=== PATIENT | male | born 1935 | race Caucasian/White ===

== ENCOUNTER 2016-10-05 21:12 | Inpatient (IN) | payer OTHER ==
[~2016-10-05] VITALS: Ht 172.7 cm; Wt 104.3 kg
--- NOTE | ~2016-10-05 | O ---
[facility] [place] [address] OPERATIVE REPORT Name: SEBASTIEN GREEN Room #: 205-P [facility] IN M.R.#: [id number] Admission: 10/06/16 Attend Phys: Dillon Sparsk Discharge: Date of : 37 Report #: [id number] THIS REPORT FOR: //name// CC: Stefan Kahn Tesfaye DATE OF SERVICE: 10/11/2016 PREOPERATIVE DIAGNOSIS: Small-bowel obstruction with possible perforation and abscess formation. 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 OPERATIVE PROCEDURE: 1. Exploratory laparotomy with small bowel resection (82 cm) of jejunum with primary anastomosis. 2. Thompson gastrostomy tube insertion. SURGEON: Sami Britt MD HIGH PRESSURE BOILER OPERATOR: Rogelio Iyer DO SECOND ASSISTANTS: 1. Alex Bowers MS3. 2. Mann Lovelace MS3. INDICATIONS: A 81-year-old male who presented with abdominal pain, obstipation and symptoms suggestive of partial small-bowel obstruction. The patient has had some resolution of the small-bowel obstruction, placed on IV antibiotics and is able to tolerate a bowel prep, so that he could have a colonoscopy, which delineated only some few small polyps and diverticulosis. The patient now requires definitive exploratory laparotomy. OPERATIVE PROCEDURE: The patient and his and family had thorough discussion of the procedure, benefits and risks. They gave informed consent to proceed. The patient was on a therapeutic antibiotic regimen. He was brought to the operating room suite and had satisfactory induction of general endotracheal anesthesia. The patient had an indwelling Cohen catheter present previously. After sterile prep and paint with DuraPrep was performed, draping was completed. An appropriate timeout was then performed. A long upper midline incision was performed from the xiphoid to the umbilicus. Upon entering the peritoneal cavity, there were some dense thin adhesions between the intermesenteric loops of the upper abdomen. Approximately 20-30 cm distal to the ligament of Treitz was an area of jejunal diverticulosis, extending for [facility] [address] [place] [address] OPERATIVE REPORT Name: GREENSEBASTIEN Room #: 205-P [facility] IN M.R.#: [id number] Admission: 10/06/16 Attend Phys: Dillon Sparks Discharge: Date of : 37 Report #: [id number] approximately 82 cm. There was exudate present on the jejunum and the intermesenteric loops at this point. Cultures of the lower abdomen and peritoneal fluid were obtained for aerobes and anaerobes. Cultures of the upper abdomen were also obtained. The dissection was made in the mesentery and the JESUS 60 stapling device was utilized to transect the proximal portion of the jejunal diverticulitis. The distal resection was then completed in the same manner with the JESUS blue load. The distal margin of the transect specimen was marked with a suture. The mesentery was then transected with the EnSeal Ethicon energy device. After the bowel resection was completed, the proximal and distal ends of the jejunum were brought together and sutured with interrupted 3-0 PDS suture. An enterotomy was then performed in the proximal and distal ends. The JESUS stapling device was inserted and an anastomosis was performed. The enterotomy site was then grasped with Allis clamps. The TA 60 stapling device was utilized to close the enterotomy of the proximal and the distal end. The anastomosis was complete. A 2 finger opening was present at the anastomosis site. Two 3-0 PDS sutures were placed at the notch to further approximate the bowel yeung. The transected end and the enterotomy sites were then oversewn with a running 3-0 PDS sutures. The rent in the mesentery was also approximated with running 2-0 PDS. After this was completed, copious irrigation with saline was performed. Evacuation of 3 liters of saline was accomplished. Further inspection of the remaining small bowel to the ileocecal valve was unremarkable. The upper abdomen is unremarkable. An NG tube could not be satisfactorily placed during the procedure into the stomach. A thompson gastrostomy tube was then inserted in the mid portion of the body of the stomach. Two pursestring sutures of 2-0 PDS were placed. A gastrotomy was performed with the cautery. The thompson tube was then brought to the abdominal wall in the left upper quadrant and the distal end was fit into the duodenum through the pylorus. The balloon was inflated with 20 mL of water. The pursestring sutures were ligated and the needles were utilized to approximate the anterior portion of the stomach to the anterior abdominal wall. After this was completed, forward flushing of water was performed through the gastrostomy tube lumen and also the enteral feeding tube lumen had water flushed through it. The liver was unremarkable. No other intra-abdominal pathology was noted. Estimated blood loss was approximately 250 mL. Hemostasis was complete. The fascia was then approximated with a running loop #1 PDS suture from the inferior aspect of the incision. A second #1 PDS suture loop was run from the superior aspect of the incision. Each were tied individually in the mid portion of the wound. The tails were then tied and completed together. All sponge and needle counts were correct prior to closure of the abdominal fascia. Irrigation of subcutaneous tissues was performed. A two 19-Albanian GRETA drains had been placed prior to fascial closure and brought out and placed in the colic gutters and brought out in the lower abdomen, one on the right, one on the left. Skin margins were then approximated with reema. [facility] [address] [place] [address] OPERATIVE REPORT Name: SEBASTIEN GREEN Room #: 205-P [facility] IN ..#: [id number] Admission: 10/06/16 Attend Phys: Dillon Sparks Discharge: Date of : 37 Report #: [id number] patient tolerated the procedure well and returned directly to the recovery room in stable and satisfactory condition. <ELECTRONICALLY SIGNED> By: Sami Britt MD, FACS 10/18/16 0907 [id number] 1824 Sami Britt MD, FACS /nt
--- NOTE | ~2016-10-05 | EKG ---
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 : [id number] Requested By: Aly Cutler Order Number: [id number] MD: Brian Davenport Measurements Intervals [place] Rate: 90 P: -52 AK: 164 QRS: -66 QRSD: 136 T: 98 QT: 360 QTc: 441 Interpretive Statements Sinus or ectopic atrial rhythm Nonspecific IVCD with LAD Inferior infarct, old Lateral leads are also involved Baseline wander in lead(s) V2 Compared to ECG 05/08/2015 18:05:47 Ectopic atrial rhythm now present Sinus tachycardia no longer present Left-axis deviation no longer present Myocardial infarct finding still present Electronically Signed On 10-09-2016 21:56:21 CDT by Brian Davenport [email or web address] <ELECTRONICALLY SIGNED> By: Brian Davenport MD 10/09/166 26 26 Brian Davenport MD /EPI
--- NOTE | ~2016-10-05 | HC ---
[facility] [place] [address] CONSULTATION Name: SEBASTIEN GREEN Room #: 419-P [facility] IN .R.#: [id number] Admission: 10/06/16 Attend Phys: Ulisses Solis DO Discharge: Date of : 37 Report #: [id number] THIS REPORT FOR: //name// CC: Stefan Sales MD [facility] Sami Velazcoiman DATE OF SERVICE: 10/06/2016 PATIENT OF: Dr. Stefan Sales, Dr. Flex Davis, and Dr. Ulisses Solis. CHIEF COMPLAINT: This is a very pleasant 81-year-old male whom we are asked to evaluate for possible colonoscopy prior to a surgical intervention for a small-bowel abscess and partial bowel obstruction. HISTORY OF PRESENT ILLNESS: The patient is a very pleasant 81-year-old white male who presented with a fever of 101.6 and an elevated white blood cell count with a left shift. He was diagnosed with a small-bowel obstruction, it looks like he may have possibly an abscess involving the small-bowel obstruction, it appears to be entirely involving the small-bowel on CT scan. Today, the patient had 2 stools indicating this is probably actually a partial small-bowel obstruction. He does complain of left lower quadrant abdominal pain. He did have nausea this week since the symptoms began and he experienced onset of new constipation, which is probably simply the small-bowel obstruction preventing any bowel motility from the stool. He has not been able to eat much all week either. PAST MEDICAL HISTORY: Significant for nonischemic cardiomyopathy, congestive heart failure, the patient has a defibrillator. He has I believe a thoracic aortic aneurysm that is inoperable since 2012. He also has a history of diabetes mellitus, obesity, hypertension, gout, hyperlipidemia, chronic kidney disease, urolithiasis, hypothyroidism, and enlarged prostate. He has lumbar compression fracture and he has a history of pulmonary embolism for which he has been taking Coumadin for several years. PAST SURGICAL HISTORY: Significant for coronary artery bypass grafting, a left ankle repair, and he had placement of a defibrillator. ALLERGIES: To DOGS AND CATS. MEDICATION ALLERGIES: Include CEPHALEXIN. [address] [address] CONSULTATION Name: SEBASTIEN GREEN Room #: 419-P [facility] IN ..#: [id number] Admission: 10/06/16 Attend Phys: Ulisses Solis DO Discharge: Date of : 37 Report #: [id number] MEDICATIONS PRIOR TO ADMISSION: Included aspirin, Lipitor, Coreg, colchicine, Cardura, potassium chloride, Glucotrol, Bl[place]coe, Imdur, spironolactone, torsemide, valsartan, and warfarin. SOCIAL HISTORY: He does not smoke. He does not drink alcohol. He does not use street drugs. FAMILY HISTORY: Significant for colon cancer in his mother at age 72. There is no history of Crohn's disease, ulcerative colitis, or celiac sprue in his family. REVIEW OF SYSTEMS: He denies any dysphagia, odynophagia, gastroesophageal reflux, hiatal hernia, or peptic ulcer disease. He has had nausea this week. No vomiting. His appetite has been poor. He thought there may be some relationship to the thyroid supplements that he started taking, but I think it was a coincidence actually. He denies any hematemesis, hematochezia, or melena. He has never had a colonoscopy. He appears to have a fatty liver on CT scan. He denies any history of jaundice, hepatitis, cholelithiasis, cholecystitis, or pancreatitis. PHYSICAL EXAMINATION: GENERAL: Reveals a well-developed, somewhat obese 81-year-old white male who is in no apparent distress at the time of the examination. He is awake, alert, oriented x4, cooperative, and very pleasant to converse with. He is sitting up in chair at the side of the bed when I interviewed him. VITAL SIGNS: Blood pressure 113/69, temperature 98.1, although it was 101.6 at about 3:00 this morning, his pulse is 94, and respirations are 18. HEENT: He is normocephalic, atraumatic and anicteric. HEART: Rate and rhythm are regular with a normal S1 and S2. LUNGS: Clear bilaterally posteriorly. ABDOMEN: Soft. Bowel sounds are present in all 4 quadrants. The abdomen is somewhat firm in the mid epigastrium and down into the periumbilical area and left lower quadrant. He is tender in the left lower quadrant. There is no rebound or guarding. EXTREMITIES: Warm and dry. NEUROLOGIC: He appears grossly intact without lateralizing signs, but I did not test him extensively from the neurological standpoint. SIGNIFICANT LABORATORY DATA: BMP is normal except as follows: Potassium is 5.7, BUN 40, creatinine 2.3, glucose is 173. Calcium is 10 with an albumin of 3.3, I think this is indicated he has some hypercalcemia. Troponin was normal. INR is 2.7. White blood cell count 14,000, hemoglobin 15.2, hematocrit 46.5, indices are normal, RDW is slightly elevated at 14.8, platelets are 212,000, he has 80 neutrophils, 10 bands, 5 lymphocytes, 1 monocyte, 1 promyelocyte, and 3 atypical . Urinalysis is pending. Stool is occult negative from the ER. [facility] [address] [place] [address] CONSULTATION Name: SEBASTIEN GREEN Room #: 419-P ADM IN M.R.#: [id number] Admission: 10/06/16 Attend Phys: Ulisses Solis DO Discharge: Date of : 37 Report #: [id number] RADIOLOGY PROCEDURES: CT scan of the abdomen and pelvis shows fatty infiltration of the liver. Gallbladder and spleen are normal. The kidneys have some cyst that are fairly large 5 and 7 cm, they look like simple cyst on the CT scan. There is a stone in the left ureter that is 7 x 3 mm and it is not causing any significant hydronephrosis. There is wall thickening of the bladder and trabeculation. Adrenal gland demonstrates some thickening in the left side. The pancreas is normal. Abdominal aorta is normal in size. There is some abdominal aortic calcification. There are dilated fluid filled small-bowel loops up to 3.5 cm in size. There is a thick wall mass or inflammatory region by the small-bowel loops and a thick wall irregular collection situated next to the small-bowel loops, which may be a large inflammatory mass. Tumor is not excluded. This may be an abscess. This appears to resides in the mid small-bowel causing a small-bowel obstruction. Cecum is high and the appendix is not well seen. There is moderate stool throughout the colon There is moderate compression of the L2 vertebrae likely chronic. There is a prostate enlargement. IMPRESSION: 1. Small-bowel obstruction versus partial small-bowel obstruction, possibly related to a small intestinal abscess. Symptoms were acute in onset on Monday or Monday. The patient has had fevers, chills, an elevated white blood cell count with a left shift. He states he could not pass flatus or stool until today since Monday. He was nauseated. He complained of new onset of constipation this week. 2. Hypothyroidism. 3. Nonischemic cardiomyopathy per old chart, history of congestive heart failure, and the patient has an implantable defibrillator. 4. Thoracic aortic aneurysm, reportedly inoperable. 5. Hyperkalemia and hypercalcemia with low albumin. 6. History of pulmonary embolism. The patient is on Coumadin for this. 7. Fatty liver. 8. Obesity. 9. Diabetes mellitus. 10. Hypertension. 11. Gout. 12. Hyperlipidemia. 13. Chronic kidney disease. 14. Urolithiasis. 15. Benign prostatic hypertrophy. 16. Lumbar compression fracture. 17. Family history of colon cancer in his mother at age 72. 18. The patient has never had a colonoscopy. RECOMMENDATIONS: My recommendations are as follows: I agree with the colonoscopy prior to surgery. We will proceed with a slow colon prep [address] [address] CONSULTATION Name: GREENSEBASTIEN Room #: 419-P [facility] IN M.R.#: [id number] Admission: 10/06/16 Attend Phys: Ulisses Solis DO Discharge: Date of : 37 Report #: [id number] consisting of MiraLax. We will hold his Coumadin to allow his protime and INR to drift down. We will continue on his current antibiotic regimen and we will encourage him to ambulate to prevent DVT formation. He will need a cardiology preoperative evaluation for clearance. I have spoken with the patient and his and the plan for prepping for this colonoscopy, which will be this coming Monday on October 10. He is agreeable to try this to see if he can tolerate slow MiraLax prep. Thank you very much once again for allowing me to participate in his care, Dr. Solis. <ELECTRONICALLY SIGNED> By: Phyllis Babb DO 10/06/162131 01 37 Phyllis Babb DO /nt
--- NOTE | ~2016-10-05 | P ---
[facility] [place] [address] PROCEDURE REPORT Name: SEBASTIEN GREEN Room #: 450-P [facility] IN M.R.#: [id number] Admission: 10/06/16 Attend Phys: Dillon Sparks Discharge: Date of : 37 Report #: [id number] THIS REPORT FOR: //name// CC: Stefan Carlin PROCEDURE: Colonoscopy. BRIEF HISTORY: The patient is a 81-year-old male with partial small-bowel obstruction secondary to walled-off small-bowel perforation with abscess. He has never had a colonoscopy, and plans are for a surgical intervention tomorrow. Colonoscopy was requested prior to the surgery. PREOPERATIVE DIAGNOSIS: Small-bowel obstruction. POSTOPERATIVE DIAGNOSES: 1. Multiple colonic polyps. 2. Diverticulosis coli, primarily descending colon. MEDICATIONS: Deep sedation with propofol and ketamine per anesthesia. SPECIMENS: 1. Proximal transverse colon polyps x 3. 2. Polyp, splenic flexure. 3. Polyp, proximal descending colon. 4. Polyp, mid sigmoid colon. ESTIMATED BLOOD LOSS: 3 mL. PROCEDURE: Colonoscopy to cecum and terminal ileum with snare polypectomy and biopsy. FINDINGS: Prior to propofol sedation, procedure of colonoscopy discussed with the patient as well as potential risks and its complications. He indicates he understands and desires to proceed. DESCRIPTION OF PROCEDURE: With the patient in left lateral decubitus position, digital examination was completed which revealed no abnormalities. Subsequently, the Levels [employer] video colonoscope was introduced through the rectum, advanced under direct vision to the cecum, done with minimal difficulty. The cecum was identified by the ileocecal valve and the appendiceal orifice. I was able to advance the scope across the ileocecal valve and examined the last 5 cm or so of the distal terminal ileum, which was unremarkable. An obstruction was [facility] [address] [place] [address] PROCEDURE REPORT Name: SEBASTIEN GREEN Room #: 450-P [facility] IN [facility].#: [id number] Admission: 10/06/16 Attend Phys: Dillon Sparks Discharge: Date of : 37 Report #: [id number] not found at this level. At that point, the scope was slowly withdrawn, and careful circumferential views obtained. The prep was overall good. There was a small amount of residual material, but overall reasonably good views were obtained throughout the colon. As we withdrew the scope, the mucosa was inspected and noted to be within normal limits; normal vascular pattern, normal light reflex. As we withdrew the scope to the level of the proximal transverse colon, 3 diminutive polyps were seen and removed by biopsy. We withdrew the scope further, and another diminutive polyp was found and removed by biopsy at the level of the splenic flexure. The scope was further withdrawn to the descending colon. He was noted to have moderate diverticular disease without endoscopic evidence of diverticulitis. In the proximal descending colon, he was found to have an 8 mm sessile polyp that was removed by cold snare polypectomy. There was good hemostasis after removal of the polyp. The scope was further withdrawn, and interestingly, by the time we reached sigmoid colon, the diverticular disease had pretty much dissipated. However, in the mid sigmoid colon, another polyp was seen and removed by biopsy. The scope was withdrawn to the rectum. Upon retroflexion, no abnormalities were seen. Scope was withdrawn. The patient tolerated the procedure well. DISPOSITION: The patient with recent findings of partial small-bowel obstruction with surgery planned tomorrow. Multiple polyps were identified and removed as described above. No obstructing lesions were seen. We will follow up on the path report, and due to the multiple polyps removed today, we would suggest return in 3 years for a surveillance high-risk screening colonoscopy. <ELECTRONICALLY SIGNED> By: Gustabo Gonzalez MD 10/11/16 1547 1402 1828 Gustabo Gonzalez MD /nt
--- NOTE | ~2016-10-05 | S ---
[facility] [place] [address] SURGICAL PATH RPT PROCEDURE Name: SEBASTIEN GREEN Room #: 247-P ADM IN M.R.#: [id number] Admission: 10/06/16 Date of : 37 Discharge: Report #: [id number] Path Case #: [id number] PATHOLOGY REPORT COLLECTION DATE: 10/11/2016 RECEIVED DATE: 10/12/2016 SUBMITTING PHYS: Dr. Sami Britt OTHER PHYS: Dr. Dillon Sales SPECIMEN(S) RECEIVED: A.Jejunum * * * * * * * * * * * * FINAL DIAGNOSIS: Small bowel, jejunum, resection: - Marked acute inflammation associated with perforation. - Diverticulosis. - Negative for dysplasia or malignancy. - Margins of resection viable and unremarkable. (IUV:mgr; 10/13/2016) PATHOLOGIST: Jannet De Paz M.D. REPORT ELECTRONICALLY SIGNED BY: Jannet De Paz M.D. DATE/TIME: 10/13/2016 16:07 * * * * * * * * * * * * GROSS PATHOLOGY: The specimen is received in formalin, labeled "Sebastien Green jejunum, long suture is distal" is a dilated, congested, purple-red segment of small bowel measuring 68.5 cm in length the maximum diameter of 4.2 cm. Each margin is closed with a line of reema. The serosa is diffusely congested with numerous adhesions and areas of exudate in the mesenteric adipose tissue. The lumen contains green, soft, mucoid fecal material. The mucosa has a starks-green, velvety, fecal stained appearance and shows its normal circular folds. The distal margin is marked with a purple suture. Sectioning reveals multiple diverticula ranging from 0.4-3.0 cm in depth. The diverticula contain starks-brown fecal material. One of the larger diverticula, located at the center of the specimen, has a romero-white, thickened outer surface and a pink-red, ragged mucosal surface. A distinct transmural defect is not grossly noted. Diverticuli are located within 6.1 cm of the proximal margin and 10.1 cm of the distal margin. No additional abnormalities are identified. Remote Broadcast Technician sections are submitted as follows: [facility] [place] [address] SURGICAL PATH RPT PROCEDURE Name: SEBASTIEN GREEN Room #: 247-P ADM IN M.R.#: [id number] Admission: 10/06/16 Date of : 37 Discharge: Report #: [id number] Path Case #: [id number] A1 - proximal margin A2 - distal margin A3 - thickened, central diverticulum A4-A5 - additional sections of diverticuli A6 - truck sales representative sections of uninvolved bowel. (ZHANNA; 10/12/2016) CLINICAL HISTORY: Small bowel obstruction, perforation, abscess INITIAL CPT CODE(S): A; 01552 Professional services performed by [facility] at [facility] [address] [place] [address] Technical services performed by [facility] at [address] [place] [address], [address], [place] [address]. [facility] [address] [place] [address] PHONE: [phone] DIRECTOR: Sage Pool M.D. * * * END OF REPORT * * *
--- NOTE | ~2016-10-05 | HC ---
[facility] [place] [address] CONSULTATION Name: SEBASTIEN GREEN Room #: 205-P [facility] IN .R.#: [id number] Admission: 10/06/16 Attend Phys: Dillon Sparks Discharge: Date of : 39 Report #: [id number] THIS REPORT FOR: //name// CC: Stefan Kahn Tesfaye DATE OF SERVICE: 10/19/2016 HISTORY OF PRESENT ILLNESS: The patient is a 81-year-old white male admitted with constipation, small-bowel obstruction, in acute renal insufficiency. He was noted to have jejunal diverticulitis with probable perforation. He underwent exploratory laparotomy with small bowel resection of jejunum with primary anastomosis and a gastrostomy tube inserted. He was placed on TPN. G-tube was clamped on 10/15/2016. He has been treated with IV Unasyn as well as Diflucan. He had acute renal insufficiency superimposed on chronic kidney disease. He was noted to have ureterolithiasis, nonobstructive, with further management per Urology. He does have diabetes mellitus with hemoglobin A1c of 7.7. He has medical complexity with generalized debilitation and we are seeing him in rehabilitation medicine consultation. PAST MEDICAL HISTORY: Includes coronary artery bypass grafting x 3, AICD placement, ankle fracture, abdominal aortic aneurysm, pacemaker with defibrillator, hypertension, high cholesterol, diabetes mellitus, prior history of a PE with DVT, peripheral vascular disease, chronic lower extremity edema. MEDICATIONS: Please see the full medication listing. SOCIAL HISTORY: Lives in a house with his , eight steps. Premorbidly was ambulatory, did not use gait aids for the most part, was able to drive in the community. He did have a walker that would be utilized for long distances. REVIEW OF SYSTEMS: Did not offer any current complaints of chest pain, shortness of breath. He has some mild abdominal pain that is improving. No current complaints of focal extremity pain. PHYSICAL EXAMINATION: GENERAL: A 81-year-old overweight white male in no obvious distress. VITAL SIGNS: Last recorded temperature is 98.8, pulse 59, respirations 20, blood pressure 127/71. NEUROLOGIC: The patient is alert and oriented, good historian. Facies are symmetric. He has functional range of motion of both upper extremities. No obvious focal weakness. ABDOMEN: Midline abdominal incision, dressings in place. EXTREMITIES: He has left lower quadrant abdominal drain. He has the abdominal [facility] [address] [place] [address] CONSULTATION Name: SEBASTIEN GREEN Room #: 205-P [facility] IN .R.#: [id number] Admission: 10/06/16 Attend Phys: Dillon Sparks Discharge: Date of : 37 Report #: [id number] Lower extremities, no focal calf swelling. Strength is probably a grade 3+ to 4-/5. DTRs are decreased. He is currently continuing to need max assist for basic transfers, but is doing a better job of getting his weight forward per discussion with physical therapy. He ambulated today 10 feet with a front-wheeled walker with mod assist. ASSESSMENT: A 81-year-old white male with the following problem list: 1. Medical complexity with generalized debilitation. 2. Small-bowel obstruction with perforation/peritonitis status post jejunal resection. 3. Acute renal insufficiency superimposed on chronic kidney disease. 4. Ureterolithiasis, nonobstructive, per Urology. 5. History of deep venous thrombosis with pulmonary embolus. 6. Hypertension. 7. Exogenous obesity. 8. History of AICD placement. 9. Coronary artery disease with prior coronary artery bypass grafting with cardiac stents. PLAN: The patient is progressed assessing with his therapies. Insurance will be checked regarding acute in-hospital inpatient rehabilitation stay. He has multiple consultants including Surgery, Cardiology, Infectious Disease, Pulmonary Medicine, Urology and these physicians will all be able to continue to follow while on the rehab cook during his recovery. We will be glad to follow along with you regarding his rehab therapy needs. By: [id number] Saul Chris MD /
--- NOTE | ~2016-10-05 | HC ---
[facility] [place] [address] CONSULTATION Name: SEBASTIEN GREEN Room #: 450-P [facility] IN ..#: [id number] Admission: 10/06/16 Attend Phys: Dillon Sparks Discharge: Date of : 37 Report #: [id number] THIS REPORT FOR: //name// CC: Stefan Carlin DATE OF SERVICE: 10/06/2016 HISTORY OF PRESENT ILLNESS: I have been asked to evaluate this 81-year-old male who has presented to the emergency department complaining of constipation and lower abdominal pain. The patient relates that his last bowel movement was approximately 3 days prior to admission. He reported that normally he has a stool on a daily basis. His abdominal pain has progressively worsened in the last 24 hours and he came to the emergency room for evaluation. He is taking a thyroid medication and thought that might be the source of his pain. His abdominal pain is reported to be cramping, worse with sitting. He denies any previous episodes similar to this in the past. He denies ever having colonoscopy up to the current time. He has noted no melena or hematochezia. A CT scan was found to demonstrate a possible intra-abdominal abscess and small bowel perforation. PAST MEDICAL HISTORY: Of significance, chronic renal disease, gout, tendonitis and ureterolithiasis, as well as coronary artery disease, ankle fracture, pacemaker defibrillator, hypertension, hypercholesterolemia, diabetes mellitus, history of PE and DVT, peripheral vascular disease, chronic lower extremity edema. PAST SURGICAL HISTORY: Coronary artery bypass grafting, repair of an ankle fracture. MEDICATIONS: Coreg 25 mg, Lipitor 40 mg, Diovan 320 mg, glipizide 10 mg b.i.d., Cardura, K-Dur, Coumadin 5 mg daily, aspirin 1 tab daily, spironolactone and Imdur. ALLERGIES: He is allergic to CAT DANDER, CEPHALOSPORINS, CEPHALEXIN AND DOGS. SOCIAL HISTORY: Denies ever smoking cigarettes. Does not use alcohol. Lives with his at home. FAMILY HISTORY: Consistent with cancer. REVIEW OF SYSTEMS: Generally, the patient has been progressively decreasing in excise tolerance, has some progressive abdominal pain and discomfort, has not lost any weight, was trying to loose. Gastrointestinal symptoms have worsened [facility] [address] [place] [address] CONSULTATION Name: SEBASTIEN GREEN Room #: 450-P [facility] IN .R.#: [id number] Admission: 10/06/16 Attend Phys: Dillon Sparks Discharge: Date of : 37 Report #: [id number] in the last 3-5 days. PHYSICAL EXAMINATION: GENERAL: Reveals a patient who is alert, comfortable. He has obesity, sitting on a chair. NECK: Supple, no adenopathy. LUNGS: Clear at the bases bilaterally. CARDIOVASCULAR: Regular rate and rhythm. ABDOMEN: Obese, mild tenderness in the lower abdomen. Bowel sounds are present. NEUROLOGIC: He is oriented times 3. He has bilateral motor symmetry. EXTREMITIES: Some pitting edema of the lower extremities. DIAGNOSTIC IMPRESSION: Partial small-bowel obstruction secondary to possible small bowel perforation with isolated abscess. PLAN: I would recommend IV fluids, IV antibiotics, evaluation by GI to consider slowly prepping the patient and possible flexible sigmoidoscopy or colonoscopy prior to exploratory laparotomy with bowel resection and resection of the abscess and perforation. The patient may require TPN for nutrition during the definitive evaluation process. Thank you for allowing us to participate in his care. <ELECTRONICALLY SIGNED> By: Sami Britt MD, FACS 10/11/16 [id number] Sami Britt MD, FACS /nt
--- NOTE | ~2016-10-05 | S ---
[facility] [place] [address] SURGICAL PATH RPT PROCEDURE Name: SEBASTIEN GREEN Room #: 247-P ADM IN M.R.#: [id number] Admission: 10/06/16 Date of : 39 Discharge: Report #: [id number] Path Case #: [id number] PATHOLOGY REPORT COLLECTION DATE: 10/10/2016 RECEIVED DATE: 10/10/2016 SUBMITTING PHYS: Dr. Gustabo Gonzalez OTHER PHYS: Dr. Dillon Sales SPECIMEN(S) RECEIVED: A.Bx at proximal hepatic flexure B.Bx of polyp at spleenic C.Polypectomy at proximal descending colon D.Polypectomy at mid sigmoid * * * * * * * * * * * * FINAL DIAGNOSIS: A. Colonic mucosa, "biopsy at proximal hepatic flexure": - Fragments of tubular adenoma. - There is no evidence of high-grade dysplasia or malignancy. B. Colonic mucosa, "biopsy of polyp of splenic flexure": - Polypoid colonic mucosa consistent with early hyperplastic polyp. - There is no evidence of adenomatous change, high-grade dysplasia or malignancy. C. Colonic mucosa, "polypectomy at proximal descending colon": - Fragments of tubular adenoma. - There is no evidence of high-grade dysplasia or malignancy. D. Colonic mucosa, "polypectomy at mid sigmoid": - Tubular adenoma. - There is no evidence of high-grade dysplasia or malignancy. (SHA:nicky; 10/12/2016) PATHOLOGIST: Edgar Chapman M.D. REPORT ELECTRONICALLY SIGNED BY: Edgar Chapman M.D. DATE/TIME: 10/12/2016 11:27 * * * * * * * * * * * * GROSS PATHOLOGY: A. Received in formalin labeled "Sebastien Green, BX at proximal hepatic flexure," are 3 segments of starks soft tissue measuring 1.2 x 0.2 x 0.2 cm in aggregate dimensions and ranging from 0.3 to 0.5 cm in maximum dimension. The specimen is submitted entirely in cassette A1. [address] [address] SURGICAL PATH RPT PROCEDURE Name: SEBASTIEN GREEN Room #: 247-P [facility] IN M.R.#: [id number] Admission: 10/06/16 Date of : 39 Discharge: Report #: [id number] Path Case #: [id number] B. Received in formalin labeled "Sebastien Green, BX of polyp at splenic," is a segment of starks soft tissue measuring 0.9 x 0.2 x 0.2 cm in maximum dimension. The specimen is submitted entirely in cassette B1. C. Received in formalin labeled "Sebastien Green, polyp at proximal descending colon," is a 1.4 x 0.4 x 0.3 cm polypoid piece of starks soft tissue. The margin is inked and the tissue is sectioned perpendicular to the margin and submitted in its entirety in cassette C1. D. Received in formalin labeled "Sebastien Green, polyp at mid sigmoid," is a 0.7 x 0.4 x 0.3 cm polypoid piece of starks soft tissue with a stalk measuring 0.4 cm in length and 0.3 cm in diameter. The margin of the stalk is inked and the tissue is sectioned perpendicular to the margin and submitted in its entirety in cassette D1. (NATHANAEL; 10/11/2016) CLINICAL HISTORY: Diverticulosis, SBO INITIAL CPT CODE(S): A; 31526 B; 99965 C; 00184 D; 26318 Professional services performed by [employer] at [facility] [address], [place] [address] Technical services performed by [employer] at [address] [place] [address], [address], [place] [address]. [facility] [address] [place] [address] PHONE: [phone] DIRECTOR: Sage Pool M.D. * * * END OF REPORT * * *
[~2016-10-05 21:12] MED LIST: ACETAMINOPHEN325 M1 PO; ACID CONTROL20 MG PO; ADALAT CC90 MG PO; ADULT LOW DOSE81 MG PO; ALEVE220 M1 PO; ANTARA130 MG PO; ASPIRIN EC325 M1 PO; ASPIRIN EC81 M1 PO; ASPIRIN325 PO; CARDURA2 MG PO; CARDURA4 MG PO; CARVEDILOL25 MG PO; CATAPRES-TTS 20.2 M1 TD; CATAPRES-TTS 20.2 MG TD; COLCHICINE0.6 MG PO; COLCRYS 0.6 MG0.6 MG PO; COREG CR80 MG PO; COUMADIN 10MG T10 M1 PO; COUMADIN 4 MG TA4 M1 PO; COUMADIN 5 MG TA5 M1 PO; DIOVAN PO; DIOVAN160 MG PO; DIOVAN320 MG PO; DYAZIDE PO; FAMOTIDINE PO; FUROSEMIDE 40 M40 MG PO; GLUCOPHAGE1000 MG PO; GLUCOPHAGE500 MG PO; GLUCOTROL5 MG PO; IMDUR 30 MG TAB30 M1 PO; JANUVIA 50 MG T50 M1 PO; JANUVIA100 MG PO; K-DUR 20 MEQ T20 MEQ PO; KEFLEX250 MG; KLOR-CON 1010 MEQ PO; LEVAQUIN 500 M500 M2 PO; LIPITOR40 MG PO; LOVENOX SC; MELOXICAM7.5 MG PO; METFORMIN 500500 MG PO; NIFEDICAL XL60 MG PO; NORCO 5-325 TA1 EACH PO; PEPCID40 MG PO; PERCOCET 7.5-31 EACH PO; POTASSIUM20 PO; PREDNISONE 20 M20 MG PO; RANITIDINE 150150 M1 PO; SPIRONOLACTONE25 M1 PO; TEKTURNA300 MG PO; TEXTURNA PO; TORSEMIDE20 MG PO; TRIAMTERENE-HC1 EAC1 PO; VANCO IV; XARELTO20 MG PO
[2016-10-05 21:21] VITALS: BP 145/99
[2016-10-05 23:15] LABS: HEMATOCRIT 46.5 % (42.0-52.0); HEMOGLOBIN 15.2 gm/dL (14.0-18.0); MCH 27.6 pg (26.0-34.0); MCHC 32.7 g/dL (28.0-37.0); MCV 84.3 fL (80.0-100.0); PLATELET COUNT 212 thou/uL (150-400); RBC 5.51 mil/uL (4.50-6.00); RDW 14.8 % (10.5-14.5)
[2016-10-05 23:21] LABS: ANION GAP 11 mmol/L (7-16); BUN 40 mg/dL (7-18); CHLORIDE 98 mmol/L (98-107); CO2 27 mmol/L (21-32); CREATININE 2.3 mg/dL (0.7-1.3); GLUCOSE 173 mg/dL (74-106); POTASSIUM 5.7 mmol/L (3.5-5.1); SODIUM 136 mmol/L (136-145)
[2016-10-05 23:24] LABS: MANUAL DIFF YES
[2016-10-05 23:30] LABS: ALBUMIN 3.3 g/dL (3.4-5.0); ALKALINE PHOSPHATASE 82 U/L (46-116); SGOT 17 U/L (15-37); SGPT 25 U/L (30-65); TOTAL BILIRUBIN 0.6 mg/dL (<0.1-1.0); TOTAL PROTEIN 8.7 g/dL (6.4-8.2); TROPONIN-I < 0.04 ng/mL (<0.04-0.07)
[2016-10-05 23:41] LABS: ABSOLUTE NEUTROPHILS 12.6 thou/uL (1.4-8.2); ATYPICAL LYMPHS 3 %; PROMYELOCYTES 1 %; TOTAL CELL COUNT 100
[2016-10-06 00:52] VITALS: BP 145/99
[2016-10-06 02:10] VITALS: BP 131/77
[2016-10-06 02:50] VITALS: BP 136/82
[2016-10-06 07:33] VITALS: BP 113/69
[2016-10-06 14:00] LABS: INR 2.7; PROTIME 27.3 Seconds (9.3-11.4)
[2016-10-06 16:25] VITALS: BP 128/67
[2016-10-06 20:00] VITALS: BP 118/75
[2016-10-06 23:23] LABS: URINE BILIRUBIN NEGATIVE (Negative); URINE BLOOD 3+ (Negative); URINE COLOR YELLOW; URINE GLUCOSE-RANDOM* NEGATIVE (Negative); URINE KETONES NEGATIVE (Negative); URINE LEUKOCYTES-REFLEX TRACE (Negative); URINE PROTEIN (DIPSTICK) 1+ (Negative); URINE SPECIFIC GRAVITY 1.025 (1.003-1.035); URINE UROBILINOGEN 0.2 E.U./dl (0.2-1.0)
[2016-10-06 23:32] LABS: CASTS None Seen /LPF (None Seen); CRYSTALS None Seen /LPF (None Seen); SQUAMOUS None Seen /LPF (0-3); URINE RBC >20 Many /HPF (0-2)
[2016-10-07 04:05] VITALS: BP 125/69
[2016-10-07 06:02] LABS: HEMATOCRIT 39.4 % (42.0-52.0); MCH 27.6 pg (26.0-34.0); MCHC 32.6 g/dL (28.0-37.0); MCV 84.7 fL (80.0-100.0); PLATELET COUNT 200 thou/uL (150-400); RBC 4.65 mil/uL (4.50-6.00); RDW 14.6 % (10.5-14.5); WBC 12.6 thou/uL (4.0-11.0)
[2016-10-07 06:05] LABS: HEMOGLOBIN 12.8 gm/dL (14.0-18.0)
[2016-10-07 06:06] LABS: MANUAL DIFF YES
[2016-10-07 06:10] LABS: INR 1.9; PROTIME 19.4 Seconds (9.3-11.4)
[2016-10-07 06:32] LABS: ALBUMIN 2.7 g/dL (3.4-5.0); CALCIUM 8.5 mg/dL (8.5-10.1); CREATININE 2.3 mg/dL (0.7-1.3); MAGNESIUM 2.1 mg/dL (1.8-2.4); POTASSIUM 4.8 mmol/L (3.5-5.1); TOTAL PROTEIN 7.3 g/dL (6.4-8.2)
[2016-10-07 07:44] VITALS: BP 112/67
[2016-10-07 08:03] LABS: ABSOLUTE NEUTROPHILS 10.2 thou/uL (1.4-8.2); TOTAL CELL COUNT 100
[2016-10-07 08:04] LABS: ANISOCYTOSIS SLIGHT
[2016-10-07 09:17] LABS: PHOSPHORUS 3.4 mg/dL (2.5-4.9)
[2016-10-07 15:53] VITALS: BP 120/90
[2016-10-07 20:00] VITALS: BP 121/76
[2016-10-08 03:30] VITALS: BP 122/69
[2016-10-08 05:20] LABS: HEMATOCRIT 37.9 % (42.0-52.0); HEMOGLOBIN 12.3 gm/dL (14.0-18.0); MCH 27.6 pg (26.0-34.0); MCHC 32.5 g/dL (28.0-37.0); MCV 84.8 fL (80.0-100.0); PLATELET COUNT 192 thou/uL (150-400); RBC 4.46 mil/uL (4.50-6.00); WBC 10.2 thou/uL (4.0-11.0)
[2016-10-08 05:22] LABS: MANUAL DIFF YES
[2016-10-08 05:41] LABS: CALCIUM 7.9 mg/dL (8.5-10.1); PHOSPHORUS 2.7 mg/dL (2.5-4.9); POTASSIUM 4.5 mmol/L (3.5-5.1); TOTAL BILIRUBIN 0.6 mg/dL (<0.1-1.0)
[2016-10-08 05:49] LABS: ABSOLUTE NEUTROPHILS 8.2 thou/uL (1.4-8.2); MYELOCYTES 1 %; TOTAL CELL COUNT 100
[2016-10-08 05:59] LABS: ALBUMIN 2.4 g/dL (3.4-5.0); MAGNESIUM 2.1 mg/dL (1.8-2.4)
[2016-10-08 07:41] VITALS: BP 153/81
[2016-10-08 16:00] VITALS: BP 146/85
[2016-10-08 19:15] VITALS: BP 105/61
[2016-10-09 03:30] VITALS: BP 155/72
[2016-10-09 03:53] LABS: HEMATOCRIT 36.7 % (42.0-52.0); HEMOGLOBIN 11.9 gm/dL (14.0-18.0); INR 1.2; MCH 27.4 pg (26.0-34.0); MCHC 32.3 g/dL (28.0-37.0); MCV 84.9 fL (80.0-100.0); PROTIME 12.1 Seconds (9.3-11.4); RBC 4.33 mil/uL (4.50-6.00); RDW 14.8 % (10.5-14.5); WBC 11.4 thou/uL (4.0-11.0)
[2016-10-09 04:05] LABS: ALBUMIN 2.3 g/dL (3.4-5.0); CALCIUM 8.1 mg/dL (8.5-10.1); CREATININE 1.9 mg/dL (0.7-1.3); MAGNESIUM 2.1 mg/dL (1.8-2.4); POTASSIUM 4.1 mmol/L (3.5-5.1); TOTAL BILIRUBIN 0.5 mg/dL (<0.1-1.0); TOTAL PROTEIN 6.8 g/dL (6.4-8.2)
[2016-10-09 07:27] VITALS: BP 146/83
[2016-10-09 12:32] VITALS: BP 145/70
[2016-10-09 16:03] VITALS: BP 162/87
[2016-10-09 19:41] VITALS: BP 160/87
[2016-10-10] VITALS (7 sets, daily range): BP systolic 130–178; BP diastolic 76–89
[2016-10-10 06:05] LABS: MCH 26.6 pg (26.0-34.0); MCHC 31.6 g/dL (28.0-37.0); MCV 84.4 fL (80.0-100.0); PLATELET COUNT 192 thou/uL (150-400); WBC 12.6 thou/uL (4.0-11.0)
[2016-10-10 06:13] LABS: MANUAL DIFF YES
[2016-10-10 06:20] LABS: CREATININE 1.6 mg/dL (0.7-1.3); MAGNESIUM 2.1 mg/dL (1.8-2.4); PHOSPHORUS 2.2 mg/dL (2.5-4.9); POTASSIUM 4.3 mmol/L (3.5-5.1)
[2016-10-10 08:43] LABS: ABSOLUTE NEUTROPHILS 10.3 thou/uL (1.4-8.2); PLATELET ESTIMATE NORMAL; TOTAL CELL COUNT 100
[2016-10-11] VITALS (12 sets, daily range): BP systolic 135–156; BP diastolic 69–82
[2016-10-11 05:32] LABS: HEMATOCRIT 36.5 % (42.0-52.0); HEMOGLOBIN 11.6 gm/dL (14.0-18.0); MCHC 31.9 g/dL (28.0-37.0); MCV 84.7 fL (80.0-100.0); RBC 4.3 mil/uL (4.50-6.00); WBC 12.1 thou/uL (4.0-11.0)
[2016-10-11 05:45] LABS: INR 1.1; PROTIME 11.5 Seconds (9.3-11.4)
[2016-10-11 05:53] LABS: CREATININE 1.4 mg/dL (0.7-1.3); POTASSIUM 4.4 mmol/L (3.5-5.1)
[2016-10-11 17:53] LABS: ABG SAMPLE TYPE ARTERIAL; BE(vivo) -12.2 mmol/L (-2 to +3); HCO3 14.4 mmol/L (22.0-26.0); LACTATE 1.26 mmol/L (0.5-2.0); O2(CT) 19.9 mL/dL (15.0-23.0); O2Hb 98.8 % (92.0-98.0); PO2 296.8 mmHg (80.0-100.0); sO2 99.6 % (92.0-98.0); tCO2 15.4 mmol/L (24.0-30.0)
[2016-10-11 17:54] LABS: pH 7.231 (7.360-7.450)
[2016-10-11 17:55] LABS: STICK SITE L.BRACHIAL
[2016-10-11 18:00] LABS: TIDAL VOLUME 600 ml
[2016-10-11 18:02] LABS: HEMATOCRIT 40.2 % (42.0-52.0); HEMOGLOBIN 13.1 gm/dL (14.0-18.0); MCH 27.8 pg (26.0-34.0); MCHC 32.5 g/dL (28.0-37.0); MCV 85.5 fL (80.0-100.0); RBC 4.7 mil/uL (4.50-6.00); RDW 15.4 % (10.5-14.5); WBC 15.2 thou/uL (4.0-11.0)
[2016-10-11 18:17] LABS: CALCIUM 7.8 mg/dL (8.5-10.1); CREATININE 1.6 mg/dL (0.7-1.3); POTASSIUM 5.3 mmol/L (3.5-5.1)
[2016-10-11 21:27] LABS: ABG SAMPLE TYPE ARTERIAL; BE(vivo) -8.2 mmol/L (-2 to +3); HCO3 16.3 mmol/L (22.0-26.0); LACTATE 1.72 mmol/L (0.5-2.0); O2Hb 97.2 % (92.0-98.0); PCO2 31.2 mmHg (35.0-45.0); PO2 106.2 mmHg (80.0-100.0); STICK SITE R.RADIAL; pH 7.337 (7.360-7.450); sO2 97.6 % (92.0-98.0); tCO2 17.3 mmol/L (24.0-30.0)
[2016-10-11 21:28] LABS: ABG COMMENT CMV; TIDAL VOLUME 600 ml
[2016-10-12] VITALS (48 sets, daily range): BP systolic 112–194; BP diastolic 51–93
[2016-10-12 05:35] LABS: HEMATOCRIT 38.2 % (42.0-52.0); HEMOGLOBIN 12.1 gm/dL (14.0-18.0); MANUAL DIFF YES; MCH 26.7 pg (26.0-34.0); MCHC 31.7 g/dL (28.0-37.0); MCV 84.1 fL (80.0-100.0); PLATELET COUNT 211 thou/uL (150-400); RBC 4.54 mil/uL (4.50-6.00); RDW 14.9 % (10.5-14.5); WBC 16.4 thou/uL (4.0-11.0)
[2016-10-12 05:39] LABS: ABG SAMPLE TYPE ARTERIAL; BE(vivo) -7.3 mmol/L (-2 to +3); FIO2 50 %; HCO3 15.9 mmol/L (22.0-26.0); LACTATE 1.77 mmol/L (0.5-2.0); O2(CT) 22.2 mL/dL (15.0-23.0); PCO2 27.3 mmHg (35.0-45.0); PO2 138.2 mmHg (80.0-100.0); STICK SITE L.RADIAL; TIDAL VOLUME 600 ml; pH 7.383 (7.360-7.450); sO2 98.8 % (92.0-98.0); tCO2 16.7 mmol/L (24.0-30.0)
[2016-10-12 05:47] LABS: ALBUMIN 1.6 g/dL (3.4-5.0); ALKALINE PHOSPHATASE 43 U/L (46-116); ANION GAP 11 mmol/L (7-16); BUN 31 mg/dL (7-18); CALCIUM 7.7 mg/dL (8.5-10.1); CHLORIDE 107 mmol/L (98-107); CO2 18 mmol/L (21-32); CREATININE 1.6 mg/dL (0.7-1.3); GLUCOSE 319 mg/dL (74-106); MAGNESIUM 1.9 mg/dL (1.8-2.4); POTASSIUM 4.5 mmol/L (3.5-5.1); SGOT 20 U/L (15-37); SGPT 20 U/L (30-65); SODIUM 136 mmol/L (136-145); TOTAL BILIRUBIN 1.1 mg/dL (<0.1-1.0); TOTAL PROTEIN 5.6 g/dL (6.4-8.2); TROPONIN-I < 0.04 ng/mL (<0.04-0.07)
[2016-10-12 09:05] LABS: ABSOLUTE NEUTROPHILS 14.3 thou/uL (1.4-8.2); PLATELET ESTIMATE NORMAL; TOTAL CELL COUNT 100
[2016-10-12 10:35] LABS: ABG SAMPLE TYPE ARTERIAL; BE(vivo) -8.5 mmol/L (-2 to +3); HCO3 16.1 mmol/L (22.0-26.0); LACTATE 1.18 mmol/L (0.5-2.0); O2(CT) 19.1 mL/dL (15.0-23.0); O2Hb 97.7 % (92.0-98.0); PO2 144.4 mmHg (80.0-100.0); Pressure Support 8 cm H20; STICK SITE R.RADIAL; pH 7.334 (7.360-7.450); sO2 98.7 % (92.0-98.0); tCO2 17.1 mmol/L (24.0-30.0)
[2016-10-12 11:30] LABS: PHOSPHORUS 2.4 mg/dL (2.5-4.9)
[2016-10-12 16:39] LABS: ABG SAMPLE TYPE ARTERIAL; BE(vivo) -7.7 mmol/L (-2 to +3); HCO3 16.4 mmol/L (22.0-26.0); O2(CT) 18.8 mL/dL (15.0-23.0); PO2 88.1 mmHg (80.0-100.0); Pressure Support 6 cm H20; STICK SITE R.RADIAL; pH 7.356 (7.360-7.450); sO2 96.5 % (92.0-98.0); tCO2 17.3 mmol/L (24.0-30.0)
[2016-10-13] VITALS (41 sets, daily range): BP systolic 113–161; BP diastolic 53–129
[2016-10-13 05:41] LABS: HEMATOCRIT 37.3 % (42.0-52.0); HEMOGLOBIN 12.1 gm/dL (14.0-18.0); MCH 27.1 pg (26.0-34.0); MCHC 32.4 g/dL (28.0-37.0); MCV 83.8 fL (80.0-100.0); RBC 4.45 mil/uL (4.50-6.00); RDW 15.5 % (10.5-14.5); WBC 20.1 thou/uL (4.0-11.0)
[2016-10-13 06:00] LABS: ALBUMIN 1.6 g/dL (3.4-5.0); CALCIUM 8.1 mg/dL (8.5-10.1); CREATININE 1.5 mg/dL (0.7-1.3); POTASSIUM 4.1 mmol/L (3.5-5.1); TOTAL BILIRUBIN 0.8 mg/dL (<0.1-1.0)
[2016-10-13 09:15] LABS: ABG SAMPLE TYPE ARTERIAL; BE(vivo) -6.4 mmol/L (-2 to +3); HCO3 17.5 mmol/L (22.0-26.0); LACTATE 1.15 mmol/L (0.5-2.0); O2(CT) 17.9 mL/dL (15.0-23.0); O2Hb 96.4 % (92.0-98.0); PCO2 30.3 mmHg (35.0-45.0); PO2 97.4 mmHg (80.0-100.0); sO2 97.4 % (92.0-98.0); tCO2 18.5 mmol/L (24.0-30.0)
[2016-10-13 09:16] LABS: STICK SITE L.RADIAL
[2016-10-13 09:17] LABS: ABG COMMENT CPAP X 1.5 HR; Pressure Support 6 cm H20; TIDAL VOLUME 745 ml
[2016-10-14] VITALS (17 sets, daily range): BP systolic 107–161; BP diastolic 54–88
[2016-10-14 05:34] LABS: CALCIUM 8.1 mg/dL (8.5-10.1); CREATININE 1.5 mg/dL (0.7-1.3); PHOSPHORUS 3.4 mg/dL (2.5-4.9)
[2016-10-15 03:25] VITALS: BP 129/66
[2016-10-15 04:33] LABS: HEMATOCRIT 33.7 % (42.0-52.0); MCH 27.1 pg (26.0-34.0); MCHC 32.7 g/dL (28.0-37.0); MCV 82.9 fL (80.0-100.0); PLATELET COUNT 262 thou/uL (150-400); RBC 4.07 mil/uL (4.50-6.00); RDW 15.3 % (10.5-14.5); WBC 16.8 thou/uL (4.0-11.0)
[2016-10-15 04:44] LABS: INR 1.1; PROTIME 11.1 Seconds (9.3-11.4)
[2016-10-15 04:53] LABS: ALBUMIN 1.5 g/dL (3.4-5.0); CALCIUM 8.2 mg/dL (8.5-10.1); CREATININE 1.5 mg/dL (0.7-1.3); MAGNESIUM 2.2 mg/dL (1.8-2.4); POTASSIUM 3.6 mmol/L (3.5-5.1); TOTAL BILIRUBIN 2.7 mg/dL (<0.1-1.0); TOTAL PROTEIN 5.9 g/dL (6.4-8.2)
[2016-10-15 05:06] LABS: MANUAL DIFF YES
[2016-10-15 07:50] LABS: ABSOLUTE NEUTROPHILS 12.9 thou/uL (1.4-8.2); ANISOCYTOSIS 1+; METAMYELOCYTES 2 %; TOTAL CELL COUNT 100
[2016-10-15 07:51] LABS: POLYCHROMASIA OCCASIONAL
[2016-10-15 08:06] VITALS: BP 144/71
[2016-10-15 10:30] VITALS: BP 151/78
[2016-10-15 15:10] VITALS: BP 159/83
[2016-10-15 19:29] VITALS: BP 141/76
[2016-10-16 03:40] VITALS: BP 152/82
[2016-10-16 06:46] LABS: HEMATOCRIT 34.7 % (42.0-52.0); HEMOGLOBIN 11.2 gm/dL (14.0-18.0); MCH 27.1 pg (26.0-34.0); MCHC 32.3 g/dL (28.0-37.0); MCV 83.7 fL (80.0-100.0); RBC 4.15 mil/uL (4.50-6.00); RDW 15.3 % (10.5-14.5); WBC 16.6 thou/uL (4.0-11.0)
[2016-10-16 07:02] LABS: ALBUMIN 1.5 g/dL (3.4-5.0); CALCIUM 8.3 mg/dL (8.5-10.1); CREATININE 1.6 mg/dL (0.7-1.3); INR 1.1; PHOSPHORUS 3.5 mg/dL (2.5-4.9); POTASSIUM 3.6 mmol/L (3.5-5.1); PROTIME 10.8 Seconds (9.3-11.4)
[2016-10-16 07:35] VITALS: BP 144/71
[2016-10-16 11:40] VITALS: BP 129/70
[2016-10-16 15:25] VITALS: BP 123/71
[2016-10-16 19:42] VITALS: BP 90/58
[2016-10-17 00:09] VITALS: BP 119/69
[2016-10-17 04:06] VITALS: BP 108/62
[2016-10-17 06:23] LABS: PROTIME 10.7 Seconds (9.3-11.4)
[2016-10-17 07:25] VITALS: BP 125/68
[2016-10-17 11:25] VITALS: BP 102/58
[2016-10-17 15:35] VITALS: BP 126/75
[2016-10-17 19:17] VITALS: BP 125/77
[2016-10-18 03:20] LABS: HEMATOCRIT 33.9 % (42.0-52.0); HEMOGLOBIN 10.9 gm/dL (14.0-18.0); MCH 26.9 pg (26.0-34.0); MCHC 32.1 g/dL (28.0-37.0); PLATELET COUNT 311 thou/uL (150-400); RBC 4.04 mil/uL (4.50-6.00); RDW 15.3 % (10.5-14.5)
[2016-10-18 03:21] LABS: MANUAL DIFF YES
[2016-10-18 03:39] LABS: CALCIUM 7.9 mg/dL (8.5-10.1); CREATININE 1.3 mg/dL (0.7-1.3); MAGNESIUM 2.1 mg/dL (1.8-2.4); POTASSIUM 3.4 mmol/L (3.5-5.1)
[2016-10-18 03:52] VITALS: BP 110/69
[2016-10-18 03:57] LABS: PROTIME 10.3 Seconds (9.3-11.4)
[2016-10-18 07:15] VITALS: BP 128/65
[2016-10-18 08:06] LABS: METAMYELOCYTES 4 %; MYELOCYTES 3 %; POLYCHROMASIA OCCASIONAL; TOTAL CELL COUNT 100
[2016-10-18 08:07] LABS: ANISOCYTOSIS 1+
[2016-10-18 11:20] VITALS: BP 112/74
[2016-10-18 15:30] VITALS: BP 117/66
[2016-10-18 19:27] VITALS: BP 126/65
[2016-10-19 05:07] LABS: HEMATOCRIT 33.7 % (42.0-52.0); HEMOGLOBIN 10.9 gm/dL (14.0-18.0); MCH 27.4 pg (26.0-34.0); MCHC 32.4 g/dL (28.0-37.0); MCV 84.7 fL (80.0-100.0); PLATELET COUNT 288 thou/uL (150-400); RBC 3.97 mil/uL (4.50-6.00); RDW 15.4 % (10.5-14.5)
[2016-10-19 05:09] LABS: MANUAL DIFF YES
[2016-10-19 05:24] LABS: INR 1.3; PROTIME 12.9 Seconds (9.3-11.4)
[2016-10-19 05:25] LABS: CREATININE 1.6 mg/dL (0.7-1.3); MAGNESIUM 2.2 mg/dL (1.8-2.4); POTASSIUM 3.8 mmol/L (3.5-5.1)
[2016-10-19 05:35] VITALS: BP 14/49
[2016-10-19 07:48] VITALS: BP 127/71
[2016-10-19 09:10] LABS: ABSOLUTE NEUTROPHILS 9.1 thou/uL (1.4-8.2); ANISOCYTOSIS 1+; METAMYELOCYTES 4 %; TOTAL CELL COUNT 100
[2016-10-19 13:10] VITALS: BP 133/78
[2016-10-19 15:34] VITALS: BP 108/61
[2016-10-19 20:43] VITALS: BP 117/66
[2016-10-20 02:47] LABS: HEMATOCRIT 36.1 % (42.0-52.0); HEMOGLOBIN 11.5 gm/dL (14.0-18.0); MCH 26.7 pg (26.0-34.0); MCHC 31.8 g/dL (28.0-37.0); MCV 84.2 fL (80.0-100.0); PLATELET COUNT 325 thou/uL (150-400); RBC 4.28 mil/uL (4.50-6.00); RDW 15.9 % (10.5-14.5); WBC 13.6 thou/uL (4.0-11.0)
[2016-10-20 02:49] LABS: CALCIUM 7.9 mg/dL (8.5-10.1); CREATININE 1.7 mg/dL (0.7-1.3); MAGNESIUM 2.1 mg/dL (1.8-2.4); POTASSIUM 3.8 mmol/L (3.5-5.1)
[2016-10-20 02:59] LABS: MANUAL DIFF YES
[2016-10-20 03:07] LABS: INR 1.4; PROTIME 14.3 Seconds (9.3-11.4)
[2016-10-20 04:08] LABS: TOTAL CELL COUNT 100
[2016-10-20 04:15] VITALS: BP 118/66
[2016-10-20 07:09] VITALS: BP 131/66
[2016-10-20 08:43] VITALS: BP 131/66
[2016-10-20] MEDS ORDERED: AUGMENTIN 500-1 EACH PO (09:28)
[2016-10-20] MEDS ORDERED: DIFLUCAN200 MG PO (09:28)
[2016-10-20] MEDS ORDERED: DUONEB 2.5-0.5 M3 ML INH (09:28)
[2016-10-20] MEDS ORDERED: ENOXAPARIN100 MG/11 SUBQ (09:29)
[2016-10-20] MEDS ORDERED: COZAAR 50 MG TA50 M2 PO (09:30)
[2016-10-20] MEDS ORDERED: HYDROCODONE-AP1 EAC6 PO (09:30)
[2016-10-20] MEDS ORDERED: TYLENOL325 MG PO (09:31)
[2016-10-20] MEDS ORDERED: DEMADEX20 MG PO (09:31)
[2016-10-20] MEDS ORDERED: ACIDOPHILUS1 EAC4 PO (09:31)
[2016-10-20] MEDS ORDERED: LANTUS100 UNIT/M SUBQ (09:32)
[2016-10-20] MEDS ORDERED: PROTONIX40 M1 PO (09:32)
[2016-10-20] MEDS ORDERED: COLACE 100 MG100 MG PO (09:33)
== END 2016-10-20 11:10 | DRG 853 ==
LOC: ER 21:12 → 4E 10-06 00:20 → EROBS 10-06 00:20 → 2N 10-06 00:20 → 4E 10-06 02:11 → 4W 10-09 12:21 → ICU 10-11 19:16 → 2N 10-14 12:44
PROVIDERS: Emergency Medicine; Hospitalist; Internal Medicine; Internal Medicine Pulmonary Disease; Nurse Practitioner; Physician Assistant; Specialist; Surgery
PROC: 02HV33Z Insertion of Infusion Device into Superior Vena Cava, Percutaneous Approach (ICD-10-PCS; 2016-10-06)
PROC: 0DBE8ZZ Excision of Large Intestine, Via Natural or Artificial Opening Endoscopic (ICD-10-PCS; 2016-10-10)
PROC: 0DTA0ZZ Resection of Jejunum, Open Approach (ICD-10-PCS; principal; 2016-10-11)
PROC: 5A1945Z Respiratory Ventilation, 24-96 Consecutive Hours (ICD-10-PCS; 2016-10-11)
PROC: 0BH17EZ Insertion of Endotracheal Airway into Trachea, Via Natural or Artificial Opening (ICD-10-PCS; 2016-10-11)
PROC: 0DH63UZ Insertion of Feeding Device into Stomach, Percutaneous Approach (ICD-10-PCS; 2016-10-11)
PROC: 0D9670Z Drainage of Stomach with Drainage Device, Via Natural or Artificial Opening (ICD-10-PCS; 2016-10-16)
DX: A41.9 Sepsis, unspecified organism (principal); J96.90 Respiratory failure, unspecified, unspecified whether with hypoxia or hypercapnia; K65.1 Peritoneal abscess; N17.9 Acute kidney failure, unspecified; K56.69 Other intestinal obstruction; N20.1 Calculus of ureter; I13.0 Hypertensive heart and chronic kidney disease with heart failure and stage 1 through stage 4 chronic kidney disease, or unspecified chronic kidney disease; E46 Unspecified protein-calorie malnutrition; I69.359 Hemiplegia and hemiparesis following cerebral infarction affecting unspecified side; E87.5 Hyperkalemia; I10 Essential (primary) hypertension; E03.9 Hypothyroidism, unspecified; E11.22 Type 2 diabetes mellitus with diabetic chronic kidney disease; I25.10 Atherosclerotic heart disease of native coronary artery without angina pectoris; I25.5 Ischemic cardiomyopathy; E78.5 Hyperlipidemia, unspecified; K63.5 Polyp of colon; K57.30 Diverticulosis of large intestine without perforation or abscess without bleeding; I50.9 Heart failure, unspecified; G47.33 Obstructive sleep apnea (adult) (pediatric); K57.10 Diverticulosis of small intestine without perforation or abscess without bleeding; N18.2 Chronic kidney disease, stage 2 (mild); Z86.718 Personal history of other venous thrombosis and embolism; Z86.711 Personal history of pulmonary embolism; Z95.810 Presence of automatic (implantable) cardiac defibrillator; Z95.1 Presence of aortocoronary bypass graft; Z95.5 Presence of coronary angioplasty implant and graft; Z88.1 Allergy status to other antibiotic agents; Z91.09 Other allergy status, other than to drugs and biological substances; Z87.11 Personal history of peptic ulcer disease; Z79.01 Long term (current) use of anticoagulants; Z68.35 Body mass index [BMI] 35.0-35.9, adult
CPT/HCPCS: 10040; 10078; 10081; 10084; 27000; 50010; 50093; 50101; 50331; 50386; 51114; 51238; 51412; 51435; 51708; 51712; 56524; 56525; 56527; 56530; 56760; 56762; 57092; 62110; 62900; 70005

== ENCOUNTER 2016-10-20 11:17 | Inpatient (IN) | payer OTHER ==
[~2016-10-20] VITALS: Ht 152.4 cm; Wt 113.4 kg
--- NOTE | ~2016-10-20 | H ---
[facility] [address] [address] HISTORY AND PHYSICAL Name: SEBASTIEN GREEN Room #: 514-P ADM IN M.R.#: [id number] Admission: 10/20/16 Attend Phys: Saul Chris MD Discharge: Date of : 37 Report #: [id number] THIS REPORT FOR: //name// CC: Saul Davis DATE OF SERVICE: 10/20/2016 HISTORY OF PRESENT ILLNESS: The patient is a 81-year-old white male originally admitted to [facility] with constipation, small-bowel obstruction, acute renal insufficiency. He was noted to have jejunal diverticulitis with probable perforation. He underwent exploratory laparotomy with small bowel resection of the jejunum with primary anastomosis and a gastrostomy tube inserted. He was placed on TPN. G-tube was clamped on 10/15/2016. He was treated with IV Unasyn as well as Diflucan. He had acute renal insufficiency superimposed on chronic kidney disease. He was noted to have ureterolithiasis non-obstructive with further management per Urology. He has diabetes mellitus with hemoglobin A1c noted to be at 7.7. He has medical complexity with generalized debilitation and has now been admitted for acute in-hospital inpatient rehabilitation. PAST MEDICAL HISTORY: Coronary artery bypass grafting x 3, AICD placement, ankle fracture, abdominal aortic aneurysm, pacemaker with defibrillator, hypertension, high cholesterol, diabetes mellitus, prior history of PE with DVT, peripheral vascular disease, and chronic lower extremity edema. MEDICATIONS: Please see the full medication listing. The medication list includes vitamins supplements, herbals. SOCIAL HISTORY: Lives in a house with his , 8 steps. Premorbidly was ambulatory, did not use gait aids, for the most part was able to drive in the community. He does have a walker that he would utilize for long distances. REVIEW OF SYSTEMS: No current complaints of chest pain, shortness of breath or abdominal discomfort. No focal extremity pain complaints. Complains of being overall generalized weak and debilitated. PHYSICAL EXAMINATION: GENERAL: A 81-year-old overweight white male in no obvious distress. VITAL SIGNS: Last recorded temperature 97.6, pulse 63, respirations 18, blood pressure 95/62. He is alert, pleasant. HEENT: Appeared to be benign. Cranial nerves are grossly intact. Facies are symmetric. CHEST: Some decreased breath sounds diffusely throughout, otherwise sounds clear. CARDIOVASCULAR: Regular rate and rhythm. [facility] [address] [place] [address] HISTORY AND PHYSICAL Name: SEBASTIEN GREEN Room #: 514-P [facility] IN .R.#: [id number] Admission: 10/20/16 Attend Phys: Saul Chris MD Discharge: Date of : 37 Report #: [id number] ABDOMEN: Soft, no guarding. Incision appeared clean, drain was noted to be removed. GENITOURINARY AND RECTAL: Deferred. NEUROLOGIC: Lower extremities, no focal calf swelling. Strength is a grade 3+ to 4-/5. DTRs are decreased. He is needing assistance at a mod assist level for basic transfers. He has started ambulating a short distance with the walker. ASSESSMENT: 1. Medical complexity with generalized debilitation. 2. Small-bowel obstruction with perforation. Status post jejunal resection. 3. Acute renal insufficiency superimposed on chronic kidney disease. 4. Ureterolithiasis, non-obstructive per Urology. 5. History of deep venous thrombosis with pulmonary embolism. 6. Hypertension. 7. Exogenous obesity. 8. History of automatic implantable cardioverter-defibrillator placement. 9. Coronary artery disease with prior coronary artery bypass grafting with cardiac stents. PLAN: The patient is admitted for acute in-hospital inpatient rehabilitation. From a post-admission physician evaluation perspective, there are no relevant changes since the preadmission screening. Please see the above review of prior and current medical and functional conditions and comorbidities. Please see the patient's previous and current functional status. Initial plan of care involves the interdisciplinary acute inpatient rehabilitation program with the goal of maximizing the patient's functional independence, so that he can hopefully return back to his prior living situation. Prognosis is reasonably good with estimated length of stay probably 10 days or so depending upon how he does. We will be having the multiple senior professional services consultant physicians follow along with him with the goal of maximizing his functional independence with getting him back to the home setting. Prognosis should be reasonably good. By: [id number] Saul Chris MD /
--- NOTE | ~2016-10-20 | HC ---
[facility] [place] [address] CONSULTATION Name: SEBASTIEN GREEN Room #: 514-P [facility] IN ..#: [id number] Admission: 10/20/16 Attend Phys: Saul Chris MD Discharge: 10/28/16 Date of : 37 Report #: [id number] THIS REPORT FOR: //name// CC: Saul Davis DATE OF SERVICE: 10/23/2016 AGE: 81 ATTENDING PHYSICIAN: Saul Chris M.D. WAREHOUSE DISTRIBUTION ASSOCIATE: Carlos Rutherford, PhD CLINICAL PRESENTATION: The patient is a 81-year-old male admitted to [facility] rehabilitation Unit for a comprehensive inpatient rehabilitation program to improve functional mobility and activities of daily living and self-care and mental status secondary to impairment from medical complexity with generalized debilitation. His diagnoses include small bowel obstruction with perforation, status post jejunal section; acute renal insufficiency superimposed on chronic kidney disease; ureterolithiasis, not obstructive; history of deep venous thrombosis with pulmonary embolism; hypertension; exogenous obesity; history of automatic implantable cardioverter defibrillator; coronary artery disease with prior coronary artery bypass grafting. A complete description of his medical condition and history and medications can be found in his medical record. Neuropsychological consultation was requested to provide assistance in the assessment of cognitive and emotional status and to provide recommendations and services. Prior to this most recent admission, he was living independently with his in their home. He is reported to have been independent with instrumental activities of daily living including driving and managing his affairs without assistance. He is with 2 children. 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 He is a high school graduate. TECHNIQUES UTILIZED: Clinical interview, review of medical records, staff consultation and behavioral observations, mini mental status exam 2 standard version and clock drawing, family interview -- . EXAMINATION FINDINGS: The patient was alert and cooperative with the assessment. He was unable to accurately describe the reason for his hospitalization. He reports the experience of pain. His does not report him as having any problems with cognitive function or mood. The patient denies difficulty with memory, word finding or appetite. Areas of decreased functioning include decreased sleep, appetite, and energy level. [facility] [address] [place] [address] CONSULTATION Name: SEBASTIEN GREEN Room #: 514-P [facility] IN M.R.#: [id number] Admission: 10/20/16 Attend Phys: Saul Chris MD Discharge: 10/28/16 Date of : 37 Report #: [id number] His performance on the MMSE-2 brief version was within normal limits with a raw score of 14/16. He was 3/3 for initial registration, 5/5 for orientation to time and 5/[address]. He was 1/3 correct for immediate recall, 3 items after a brief time delay and distraction. His performance on the MMSE-2 standard version was within normal limits with a raw score 26/30. He was 4/5 for serial sevens, 2/2 for naming, 1/1 for repetition, 3/3 for comprehension. He was able to read and follow single command. The patient could write a sentence. The patient had difficulty with copying a simple geometric design. Letter fluency was generally within normal limits. Decreased upper extremity dexterity is noted. The patient and his are wanting him to return home as soon as possible. He appears to be having difficulty with immediate recall, visual spatial construction and variability in attention and concentration. DIAGNOSTIC IMPRESSION: Mild neurocognitive disorder, unspecified, without behavior disorder. RECOMMENDATIONS: The patient will benefit from continued speech that includes assistance in the development of compensatory strategies for areas of decreased cognition. The use of a memory notebook will be of benefit to assist with the development and implementation of strategies to improve neurocognitive functional status. A followup neuropsych assessment in approximately 3-6 months to clarify the extent of cognitive deficits. Increased supervision is suggested upon his return home to ensure safety in carrying out previous levels of independent activity. Thank you very much for allowing me to provide the consultation on this patient. <ELECTRONICALLY SIGNED> By: Carlos Rutherford, PhD 10/30/16 1412 [id number] Carlos Rutherford, PhD /nt
--- NOTE | ~2016-10-20 | HC ---
[facility] [place] [address] CONSULTATION Name: SEBASTIEN GREEN Room #: 514-P [facility] IN .R.#: [id number] Admission: 10/20/16 Attend Phys: Saul Chris MD Discharge: Date of : 37 Report #: [id number] THIS REPORT FOR: //name// CC: Saul Davis DATE OF SERVICE: 10/24/2016 HISTORY OF PRESENT ILLNESS: This is a 81-year-old male who we are asked to see today because of a rising creatinine level. He was admitted 2-1/2 weeks ago through the Emergency Room with abdominal pain. He ended up having a small bowel obstruction. There is concern over a perforation of the small bowel and on 10/11/2016, he underwent an exploratory laparotomy with a resection of 82 cm of the jejunum with a primary reanastomosis. 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 He had a lengthy recovery from that surgery. He was treated with long course of antibiotics for all that. He still has one drain in place. He is also still wearing his abdominal binder. He did eventually improve and was discharged 2 weeks later to the inpatient rehabilitation floor. He has now been up in the rehabilitation floor for a number of days. He is progressing with his strength with walking and stair climbing and helping with his activities of daily living. We are asked to see him today because of a rising creatinine level. The patient has a history of chronic kidney disease, stage 3. He is followed chronically in our office by Dr. Sarath Rao. Last time he was in the office, he had a creatinine level of 1.7. I would note that since he came in to the hospital, his creatinine level was 2.3 on admission, but dropped in to the 1.5 to 1.6 range for most of that stay, it was 1.8 on 10/21/2016. This morning was up to 2.6. The patient reports no difficulty voiding urine. He had 2 episodes remotely of nephrolithiasis. Again, that was many years ago. His CT scan when he first came in suggested some stones, but these were small in size and were nonobstructing. He has had no stone symptoms. He said that yesterday, a bladder scan was done then and that his bladder was empty. He reports no dysuria, urgency or frequency or no symptoms of retention. He has been on his usual antihypertensive medications including some losartan 50 mg daily, torsemide 20 mg daily, spironolactone 25 mg daily, carvedilol 25 mg b.i.d. He has had fairly good blood pressures. He had a couple of blood pressures over the weekend as well as 95/62 and 101/61, but more than that has been much more in the 130 systolic range. He has not been tachycardic. I do not have any reliable weights to tell it is weight that has been doing. He states his appetite has been poor, intake has been down, although he has been trying to keep his fluid intake up. I cannot find that he received any nephrotoxic exposures including no contrast media. PAST MEDICAL HISTORY: Extensive and includes type 2 diabetes, longstanding hypertension, coronary artery disease with CABG in 2006 and previous stents, [address] [address] CONSULTATION Name: SEBASTIEN GREEN Room #: 514-P [facility] IN M.R.#: [id number] Admission: 10/20/16 Attend Phys: Saul Chris MD Discharge: Date of : 37 Report #: [id number] previous small CVA, remote kidney stones as noted above. He has a pacemaker and defibrillator in. He has had a problem with the bowel resection. He has had previous abdominal aortic aneurysm, hyperlipidemia, previous pulmonary embolism and DVT, peripheral vascular disease and chronic edema of the lower extremities. CURRENT MEDICATIONS: Include isosorbide mononitrate 30 mg daily, spironolactone 25 mg daily, torsemide 20 mg daily, losartan 50 mg daily, aspirin 81 mg daily, pantoprazole 40 mg daily, atorvastatin 40 mg daily, long-acting insulin, warfarin, carvedilol 25 mg b.i.d., DuoNeb inhaler, multiple p.r.n. medications, fluconazole 200 mg daily and amoxicillin clavulanate 500 mg b.i.d. ALLERGIES: No known medical allergies. FAMILY HISTORY: Noncontributory. SOCIAL HISTORY: The patient is and accompanied by his at this time. He lives in [place], [place]. He is retired. REVIEW OF SYSTEMS: Basically as per history of present illness. Appetite has been down, one episode of emesis a couple of days ago. No further vomiting, no diarrhea. Abdominal pain is fully getting better, no difficulty voiding urine. Denies dyspnea, cough, chest pain or palpitations, is getting strong with his rehab, does have chronic lower extremity edema and that is actually better than it has been, no other edema noted. No recent visual or hearing changes. Denies symptoms of lightheadedness, dizziness or a sensation of blacking out when he is upright and doing his physical therapy and rehabilitation. PHYSICAL EXAMINATION: GENERAL: Very pleasant, obese 81-year-old male, awake, alert and responsive. VITAL SIGNS: Blood pressure earlier 141/79, more recently 100/56, heart rate 74, temperature 97.8. HEENT: Shows pupils are equal and reactive. Sclerae nonicteric. Oral mucosa is moist. NECK: Large neck veins are not distended. CHEST: Shows shallow respirations, but is fairly clear bilaterally. CARDIOVASCULAR: Heart has a regular rate and rhythm. ABDOMEN: Obese, still has a drain in place, still has a binder on. I did not take down the full binder. I could tell that there does not appear to be tenderness over the bladder. EXTREMITIES: Show hyperpigmented changes with both legs consistent with chronic edema, but not much edema at this time, thighs show no edema, no upper extremity edema. LABORATORY DATA: Sodium 136, potassium 4.6, chloride 103, bicarb 20, BUN 60, creatinine 2.6, glucose 210, calcium 8.0. INR 2.1. White count 11.3, hemoglobin 10.6, hematocrit 32.3, platelets 209,000. No urinalysis from the [address] [place] [address] CONSULTATION Name: SEBASTIEN GREEN Room #: 514-P [facility] IN .R.#: [id number] Admission: 10/20/16 Attend Phys: Saul Chris MD Discharge: Date of : 37 Report #: [id number] past 2-1/2 weeks. ASSESSMENT: 1. Acute kidney injury on top of chronic kidney disease, stage 3. There has been a concern that he is somewhat volume depleted and that is certainly a reasonable concern. He is still put on a lot of antihypertensive medications, which are his chronic meds. On exam, it is difficult to tell his volume status. He did have mild drop in blood pressure over the past few days, so that may be contributing. He has been trying to volume load by mouth. I do not think we need IV fluids at this time, main question that I have is emptying his bladder. He has got a lot of abdominal symptoms postoperatively, so we need to check a bladder scan. He may just need a Cohen catheter. He has not received any nephrotoxic exposures. Concerning his blood pressure meds, I think it is reasonable to hold his angiotensin receptor flora, his torsemide and the spironolactone at this time. If his creatinine comes right back down and if his blood pressures needs it, we can get him back on those medications. He had a CT scan at the time of admission showing no obstruction. I do not think we need to repeat ultrasound or other scan at this time. 2. Two weeks post jejunal resection for jejunal diverticulitis and perforation. 3. Longstanding diabetes mellitus. His sugars are up earlier today and we need to make sure those get better controlled. 4. Hypertension, on multiple meds. Again, I will hold a few those at this time. 5. Obesity. 6. Chronic lower extremity edema, actually fairly improved at this time. PLAN: 1. Continue oral volume loading. 2. Check bladder scan. 3. Check urinalysis and fractional excretion of sodium. 4. Hopefully, torsemide, spironolactone and losartan. 5. Recheck labs in the morning. 6. We will follow along the care of this pleasant patient. <ELECTRONICALLY SIGNED> By: Sarath Rao MD 10/26/16 [id number] Gustavo Mcgovern MD /nt
--- NOTE | ~2016-10-20 | PLAN ---
[facility] [place] [address] REHAB UNIT PLAN OF CARE Name: SEBASTIEN GREEN Room #: 514-P ADM IN M.R.#: [id number] Admission: 10/20/16 Attend Phys: Saul Chris MD Discharge: Date of : 37 Report #: [id number] THIS REPORT FOR: //name// CC: Saul Davis DATE OF SERVICE: 10/22/2016 PROGRESS NOTE/OVERALL PLAN OF CARE The patient is seen back in followup. He was seen earlier this morning. No distress. Temperature 37.3, pulse 66, respirations 20, blood pressure 105/64. He has 2 GRETA drain sites. He has the abdominal binder. He has been working in therapies with transfers, mod assist. He is ambulating 10 feet min assist front-wheeled walker. In occupational therapy, lower body dressing is mod assist, upper body dressing is supervision. In speech therapy, he has mild to moderate comprehensive deficits. ASSESSMENT: 1. Medical complexity with generalized debilitation. 2. Small-bowel obstruction with perforation. Status post jejunal resection. 3. Acute renal insufficiency superimposed on chronic kidney disease. 4. Ureterolithiasis, nonobstructive. 5. History of deep venous thrombosis with pulmonary embolism. 6. Hypertension. 7. Exogenous obesity. 8. History of automatic implantable cardioverter defibrillator placement. 9. Coronary artery disease with prior coronary artery bypass grafting with cardiac stents. PLAN: The overall plan of care is based on the preadmission screen, post-admission physician evaluation and information garnered from therapy assessments. 1. Estimated length of stay is probably at least 10 days to 2 weeks if he is at a lower level. His medical prognosis is reasonably good. Anticipated interventions include the interdisciplinary acute inpatient rehabilitation team along with the sales operations consultant physicians that will follow along regarding his multiple medical comorbidities. 2. Anticipated functional outcomes would be for him to hopefully become modified independent with transfers, mobility and ADLs as well as comprehension and cognition. He does have [id number] comprehensive deficits. 3. Discharge destination is back to the home setting where he lives with his . 4. Expected therapy by discipline includes PT, OT and speech 1 hour per day [address] [address] REHAB UNIT PLAN OF CARE Name: SEBASTIEN GREEN Room #: 514-P [facility] IN ..#: [id number] Admission: 10/20/16 Attend Phys: Saul Chris MD Discharge: Date of : 37 Report #: [id number] each 5 days a week throughout the duration of the acute inpatient rehabilitation stay. By: [id number] Saul Chris MD /
--- NOTE | ~2016-10-20 | HC ---
[facility] [place] [address] CONSULTATION Name: SEBASTIEN GREEN Room #: 514-P [facility] IN .R.#: [id number] Admission: 10/20/16 Attend Phys: Saul Chris MD Discharge: Date of : 37 Report #: [id number] THIS REPORT FOR: //name// CC: Stefan Sales MD [facility] Saul Carlin MD DATE OF SERVICE: 10/20/2016 GASTROENTEROLOGY CONSULTATION The patient of Dr. Flex Davis and Dr. Saul Chris. CHIEF COMPLAINT: This is a very pleasant 81-year-old white male who is well known to me from previous consultation done on 10/06/2016 that for all of the significant historical data though I will try to include that here too. HISTORY OF PRESENT ILLNESS: Basically, he is a 81-year-old male that we are asked to see because of diarrhea of sudden onset. He has no other symptoms except the diarrhea. He denies any nausea, vomiting, abdominal pain, fevers, chills, hematemesis, hematochezia or melena. Of interest, he was started on stool softeners recently and we think that this may be the etiology of his diarrhea. He has been on antibiotics recently also because of a partial small-bowel obstruction that required surgery, so we need to be certain to reevaluate him for C. difficile infection as well. PAST MEDICAL HISTORY: Significant for a nonischemic cardiomyopathy, congestive heart failure. The patient has a defibrillator. He has a thoracic aortic aneurysm that is considered inoperable. He also has a history of diabetes mellitus, obesity, hypertension, gout, hyperlipidemia, chronic kidney disease, urolithiasis, hypothyroidism and an enlarged prostate. He has lumbar compression fracture. He has a history of pulmonary emboli for which he was taking Coumadin for several years. PAST SURGICAL HISTORY: Significant for coronary artery bypass grafting, left ankle repair and placement of the defibrillator. ALLERGIES: No known drug allergies. MEDICATIONS: Prior to admission include the following: Aspirin, fluconazole, isosorbide mononitrate, lactobacillus, losartan, spironolactone, torsemide, pantoprazole, amoxicillin/clavulanate, potassium, atorvastatin, enoxaparin, [address] [address] CONSULTATION Name: SEBASTIEN GREEN Room #: 514-P [facility] IN [facility].#: [id number] Admission: 10/20/16 Attend Phys: Saul Chris MD Discharge: Date of : 37 Report #: [id number] detemir insulin, warfarin, carvedilol, albuterol with ipratropium, docusate sodium, acetaminophen and hydrocodone. SOCIAL HISTORY: He does not smoke. He does not drink alcohol. He has never used street drugs. FAMILY HISTORY: Significant for colon cancer in his mother at age 72. There is no history of Crohn's disease, ulcerative colitis or celiac sprue in his family. REVIEW OF SYSTEMS: He denies any dysphagia, odynophagia, gastroesophageal reflux, hiatal hernia, peptic ulcer disease. He has no nausea or vomiting. His appetite has been better than it was. He denies any hematemesis, hematochezia or melena. He has had diarrhea, no constipation at this time. He denies any history of jaundice, hepatitis, cholelithiasis, cholecystitis or pancreatitis. He denies any abdominal pain. PHYSICAL EXAMINATION: GENERAL: He is a somewhat obese 81-year-old white male who is in no apparent distress at the time of my examination, he was awake, alert, oriented times 4 and cooperative and pleasant to converse with. VITAL SIGNS: Stable. HEENT: He is normocephalic, atraumatic and anicteric. HEART: Rate and rhythm are regular with a normal S1 and S2. LUNGS: Clear bilaterally anteriorly and laterally. ABDOMEN: Soft. Bowel sounds are present in all 4 quadrants. There is no palpable organomegaly or mass. There is a scar consistent with his recent surgery. There is no rebound or guarding. EXTREMITIES: Warm and dry. NEUROLOGICAL: He appears grossly intact without lateralizing signs, but I did not test him extensively neurologically speaking. IMPRESSION: 1. New onset of diarrhea cause uncertain. This could be secondary to recent stool softeners that were started. He could have easily gotten C. diff as he has been on antibiotics while hospitalized for surgery for a partial small-bowel obstruction. 2. Recent partial small-bowel obstruction that required a surgical incision of the involved segment of small intestine, only exudative small bowel diverticula were found. There was no abscess. 3. Non-ischemic cardiomyopathy. 4. Congestive heart failure. 5. The patient has defibrillator. 6. Inoperable thoracic aortic aneurysm. 7. Diabetes mellitus. 8. Obesity. 9. Hypertension. [facility] [address] [place] [address] CONSULTATION Name: SEBASTIEN GREEN Room #: 514-P ADM IN M.R.#: [id number] Admission: 10/20/16 Attend Phys: Saul Chris MD Discharge: Date of : 37 Report #: [id number] 10. Gout. 11. Hyperlipidemia. 12. Chronic kidney disease. 13. Urolithiasis. 14. Hypothyroidism. 15. Enlarged prostate. 16. Lumbar compression fractures. 17. History of pulmonary embolism and the patient has been on Coumadin for several years for this. PLAN: My recommendations at this time would be to send stools for C. diff toxin evaluation. I agree with holding the stool softeners for now. We will follow along with you while he is in the rehab unit. Thank you very much once again for allowing us to participate in his care. <ELECTRONICALLY SIGNED> By: Phyllis Babb DO 10/27/16 [id number] Phyllis Babb DO /nt
[2016-10-20 11:00] VITALS: BP 124/72
[~2016-10-20 11:17] MED LIST changes: +ACIDOPHILUS1 EAC4 PO; +AUGMENTIN 500-1 EACH PO; +COLACE 100 MG100 MG PO; +COZAAR 50 MG TA50 M2 PO; +DEMADEX20 MG PO; +DIFLUCAN200 MG PO; +DUONEB 2.5-0.5 M3 ML INH; +ENOXAPARIN100 MG/11 SUBQ; +HYDROCODONE-AP1 EAC6 PO; +LANTUS100 UNIT/M SUBQ; +PROTONIX40 M1 PO; +TYLENOL325 MG PO
[2016-10-21 05:26] VITALS: BP 95/62
[2016-10-21 05:45] LABS: HEMATOCRIT 33.9 % (42.0-52.0); HEMOGLOBIN 10.8 gm/dL (14.0-18.0); MCH 26.9 pg (26.0-34.0); MCHC 31.9 g/dL (28.0-37.0); MCV 84.5 fL (80.0-100.0); RBC 4.01 mil/uL (4.50-6.00); RDW 15.8 % (10.5-14.5); WBC 12.6 thou/uL (4.0-11.0)
[2016-10-21 05:57] LABS: INR 1.7; PROTIME 16.9 Seconds (9.3-11.4)
[2016-10-21 05:58] LABS: CALCIUM 8.1 mg/dL (8.5-10.1); CREATININE 1.8 mg/dL (0.7-1.3); POTASSIUM 3.6 mmol/L (3.5-5.1)
[2016-10-21 07:37] VITALS: BP 129/75
[2016-10-21 16:45] VITALS: BP 101/61
[2016-10-22 03:45] VITALS: BP 105/64
[2016-10-22 07:56] LABS: INR 1.9; PROTIME 19.5 Seconds (9.3-11.4)
[2016-10-22 15:55] VITALS: BP 103/61
[2016-10-23 03:04] VITALS: BP 142/85
[2016-10-23 05:43] LABS: INR 1.9; PROTIME 19.5 Seconds (9.3-11.4)
[2016-10-23 17:10] VITALS: BP 139/65
[2016-10-23 20:30] VITALS: BP 142/76
[2016-10-24 03:24] VITALS: BP 138/74
[2016-10-24 03:40] LABS: HEMATOCRIT 32.3 % (42.0-52.0); HEMOGLOBIN 10.6 gm/dL (14.0-18.0); MCH 27.2 pg (26.0-34.0); MCHC 32.9 g/dL (28.0-37.0); MCV 82.8 fL (80.0-100.0); RBC 3.9 mil/uL (4.50-6.00); RDW 15.6 % (10.5-14.5); WBC 11.3 thou/uL (4.0-11.0)
[2016-10-24 03:42] LABS: INR 2.1; PROTIME 20.8 Seconds (9.3-11.4)
[2016-10-24 03:44] LABS: CREATININE 2.6 mg/dL (0.7-1.3); POTASSIUM 4.6 mmol/L (3.5-5.1)
[2016-10-24 16:00] VITALS: BP 100/56
[2016-10-24 19:49] VITALS: BP 134/92
[2016-10-24 21:36] LABS: URINE BILIRUBIN NEGATIVE (Negative); URINE BLOOD 3+ (Negative); URINE COLOR YELLOW; URINE GLUCOSE-RANDOM* NEGATIVE (Negative); URINE KETONES NEGATIVE (Negative); URINE LEUKOCYTES-REFLEX NEGATIVE (Negative); URINE PROTEIN (DIPSTICK) NEGATIVE (Negative); URINE SPECIFIC GRAVITY 1.015 (1.003-1.035); URINE UROBILINOGEN 0.2 E.U./dl (0.2-1.0)
[2016-10-24 21:39] LABS: URINE CREATININE-RANDOM* 93.3 mg/dL
[2016-10-24 21:42] LABS: URINE RBC 3-10 Few /HPF (0-2)
[2016-10-24 21:43] LABS: CASTS None Seen /LPF (None Seen); CRYSTALS None Seen /LPF (None Seen); SQUAMOUS 0-3 Few /LPF (0-3)
[2016-10-24 21:44] LABS: URINE WBC-REFLEX None Seen /HPF (0-5)
[2016-10-25 06:21] LABS: INR 2.4; PROTIME 24.7 Seconds (9.3-11.4)
[2016-10-25 06:25] LABS: CALCIUM 8.2 mg/dL (8.5-10.1); CREATININE 2.7 mg/dL (0.7-1.3); MAGNESIUM 2.3 mg/dL (1.8-2.4)
[2016-10-25 09:00] VITALS: BP 134/43
[2016-10-25 18:00] VITALS: BP 155/62
[2016-10-25 19:46] VITALS: BP 124/71
[2016-10-26 04:09] LABS: PROTIME 29.8 Seconds (9.3-11.4)
[2016-10-26 04:18] LABS: ALBUMIN 2.1 g/dL (3.4-5.0); CALCIUM 8.6 mg/dL (8.5-10.1); CREATININE 2.4 mg/dL (0.7-1.3); PHOSPHORUS 4.2 mg/dL (2.5-4.9)
[2016-10-26 08:00] VITALS: BP 118/70
[2016-10-26 20:26] VITALS: BP 123/71
[2016-10-27 06:41] LABS: INR 3.3; PROTIME 33.6 Seconds (9.3-11.4)
[2016-10-27 07:02] LABS: ALBUMIN 1.9 g/dL (3.4-5.0); CALCIUM 8.6 mg/dL (8.5-10.1); CREATININE 2.2 mg/dL (0.7-1.3); PHOSPHORUS 4.1 mg/dL (2.5-4.9); POTASSIUM 5.2 mmol/L (3.5-5.1)
[2016-10-27] MEDS ORDERED: PROTONIX40 M1 PO (07:55)
[2016-10-27] MEDS ORDERED: TYLENOL325 MG PO (07:55)
[2016-10-27] MEDS ORDERED: PREVALITE PACKE1 PKT PO (07:55)
[2016-10-27] MEDS ORDERED: FLOMAX0.4 MG PO (07:55)
[2016-10-27] MEDS ORDERED: VENTOLIN HFA 1818 GM INH (11:10)
[2016-10-27 14:37] VITALS: BP 110/58
[2016-10-27 18:00] VITALS: BP 110/58
[2016-10-27 21:08] VITALS: BP 117/55
[2016-10-28 06:19] LABS: ABSOLUTE NEUTROPHILS 6.6 thou/uL (1.4-8.2); BASOPHILS 1.1 % (0.0-2.0); EOSINOPHILS 5.3 % (0.0-3.0); HEMATOCRIT 24.5 % (42.0-52.0); LYMPHOCYTES 14.8 % (24.0-44.0); MCH 27.1 pg (26.0-34.0); MCHC 32.6 g/dL (28.0-37.0); MCV 82.9 fL (80.0-100.0); MONOCYTES 8.4 % (1.0-8.0); PLATELET COUNT 263 thou/uL (150-400); POLYS 70.4 % (36.0-66.0); RBC 2.96 mil/uL (4.50-6.00); RDW 15.3 % (10.5-14.5); WBC 9.3 thou/uL (4.0-11.0)
[2016-10-28 06:25] LABS: MANUAL DIFF NO
[2016-10-28 06:28] LABS: PROTIME 30.8 Seconds (9.3-11.4)
[2016-10-28 06:29] LABS: CALCIUM 8.6 mg/dL (8.5-10.1); CREATININE 2.1 mg/dL (0.7-1.3); MAGNESIUM 2.6 mg/dL (1.8-2.4); POTASSIUM 5.3 mmol/L (3.5-5.1)
[2016-10-28 06:40] LABS: INR 3.1
[2016-10-28 08:30] VITALS: BP 107/62
[2016-10-28] MEDS ORDERED: COUMADIN 5 MG TA5 M1 PO (12:39)
[2016-10-28] MEDS ORDERED: PROTONIX40 M1 PO (12:40)
[2016-10-28 13:10] VITALS: BP 110/58
[2016-10-28] MEDS ORDERED: FLOMAX0.4 MG PO (14:11)
== END 2016-10-28 15:37 | disposition home health service (06) | DRG 947 ==
PROVIDERS: Hospitalist; Internal Medicine Nephrology; Nurse Practitioner; Physical Medicine & Rehabilitation
DX: R53.81 Other malaise (principal); J95.821 Acute postprocedural respiratory failure; K56.60 Unspecified intestinal obstruction; N17.9 Acute kidney failure, unspecified; K57.00 Diverticulitis of small intestine with perforation and abscess without bleeding; N20.1 Calculus of ureter; I13.0 Hypertensive heart and chronic kidney disease with heart failure and stage 1 through stage 4 chronic kidney disease, or unspecified chronic kidney disease; S32.009A Unspecified fracture of unspecified lumbar vertebra, initial encounter for closed fracture; E46 Unspecified protein-calorie malnutrition; J98.11 Atelectasis; Z68.42 Body mass index [BMI] 45.0-49.9, adult; K59.00 Constipation, unspecified; E11.22 Type 2 diabetes mellitus with diabetic chronic kidney disease; E78.00 Pure hypercholesterolemia, unspecified; E11.51 Type 2 diabetes mellitus with diabetic peripheral angiopathy without gangrene; E66.09 Other obesity due to excess calories; I25.10 Atherosclerotic heart disease of native coronary artery without angina pectoris; I50.9 Heart failure, unspecified; E03.9 Hypothyroidism, unspecified; M10.9 Gout, unspecified; E78.5 Hyperlipidemia, unspecified; X58.XXXA Exposure to other specified factors, initial encounter; D12.6 Benign neoplasm of colon, unspecified; D72.829 Elevated white blood cell count, unspecified; E86.0 Dehydration; E87.6 Hypokalemia; N18.2 Chronic kidney disease, stage 2 (mild); I25.5 Ischemic cardiomyopathy; R19.7 Diarrhea, unspecified; R13.10 Dysphagia, unspecified; N40.1 Benign prostatic hyperplasia with lower urinary tract symptoms; R35.0 Frequency of micturition; R33.9 Retention of urine, unspecified; Z93.1 Gastrostomy status; Z95.1 Presence of aortocoronary bypass graft; Z95.810 Presence of automatic (implantable) cardiac defibrillator; Z87.81 Personal history of (healed) traumatic fracture; Z86.711 Personal history of pulmonary embolism; Z86.718 Personal history of other venous thrombosis and embolism; Z79.01 Long term (current) use of anticoagulants; Z88.1 Allergy status to other antibiotic agents; Z91.09 Other allergy status, other than to drugs and biological substances; Z80.9 Family history of malignant neoplasm, unspecified; Y93.89 Activity, other specified; Y92.89 Other specified places as the place of occurrence of the external cause; Y99.8 Other external cause status; Z86.73 Personal history of transient ischemic attack (TIA), and cerebral infarction without residual deficits; Z95.5 Presence of coronary angioplasty implant and graft; Z79.82 Long term (current) use of aspirin; Z79.4 Long term (current) use of insulin; Z79.899 Other long term (current) drug therapy
CPT/HCPCS: 10112

== ENCOUNTER → 2016-11-21 | Outpatient (CLI) | payer OTHER ==
[~2016-11-21] MED LIST changes: +FLOMAX0.4 MG PO; +PREVALITE PACKE1 PKT PO; +VENTOLIN HFA 1818 GM INH
== END ==
LOC: RAD 09:33 → EDBD 09:33
DX: N20.1 Calculus of ureter (principal)

== ENCOUNTER 2018-10-27 07:14 | Inpatient (IN) | payer OTHER ==
[~2018-10-27] VITALS: Ht 167.6 cm; Wt 103.4 kg
--- NOTE | ~2018-10-27 | HC ---
[facility] [place] [address] CONSULTATION Name: SEBASTIEN GREEN Room #: 455-P [facility] IN .R.#: [id number] Admission: 10/27/18 Attend Phys: Dillon Sparks Discharge: Date of : [birth year] Report #: [id number] THIS REPORT FOR: //name// CC: Dillon Gaffney Lonnie ____ ____ DATE OF SERVICE: 10/28/2018 INFECTIOUS DISEASE CONSULTATION ATTENDING PHYSICIAN: Dillon Sparks MD REASON FOR CONSULTATION: Arthritis, right wrist with very high white blood cell count and positive uric acid crystals. HISTORY OF PRESENT ILLNESS: The patient is an 84-year-old white man treated a month ago for gout, right knee. The patient presents to the ER with increasing pain on the right knee and he is evaluated by Dr. Dale Blackmon, arthrocentesis done. The cell count on the synovial fluid of the right wrist is extremely high, compatible with septic arthritis, but also the patient had urate crystals seen confirming the diagnosis of gout. Obviously, we do not have Gram stain since this is not done her, been such a difficult test to do. The patient is treated with vancomycin, Cipro and single dose of Solu-Medrol and ____. He is significantly improved today. He is able to move his arm and wrist with no significant pain. Obviously, these kind of things not usually seen with septic arthritis, had improvement overnight. PAST MEDICAL HISTORY: Coronary artery bypass grafting x 3, coronary artery stenting. Ankle fracture. Abdominal aortic aneurysm untreatable. Status post permanent pacemaker, hypertension. Small-bowel obstruction requiring exploratory laparotomy. Abdominal wall abscess. Kidney stones. Chronic kidney disease. Adenomatous colon polyp. Jejunal resection and J-tube placement in the past. Chronic kidney disease being evaluated by Dr. Rao. DRUG ALLERGIES: CEPHALEXIN. MEDICATIONS: The patient is currently on treatment with allopurinol 100 mg daily, linagliptin, torsemide, aspirin, spironolactone, isosorbide, pantoprazole, insulin glargine, atorvastatin, cholestyramine-aspartame, tamsulosin, enoxaparin, carvedilol, insulin lispro per sliding scale, p.r.n. glucose, glucagon, morphine sulfate p.r.n., hydrocodone bitartrate by mouth p.r.n., acetaminophen p.r.n., zolpidem tartrate p.r.n., polyethylene glycol by mouth p.r.n., nitroglycerin SL p.r.n., ondansetron p.r.n., vancomycin 500 mg IV daily, Solu-Medrol 125 mg stat yesterday, ciprofloxacin 400 mg stat yesterday, vancomycin loading dose at [address] [place] [address] CONSULTATION Name: GREENSEBASTIEN Room #: 455-P [facility] IN M.R.#: [id number] Admission: 10/27/18 Attend Phys: Dillon Sparks Discharge: Date of : [birth year] Report #: [id number] SOCIAL HISTORY: See H and P. The patient's attending physician is ____ who has checked the patient's uric acid. He tells me his last uric acid we have here in the hospital is in 2017. REVIEW OF SYSTEMS: Noncontributory. PHYSICAL EXAMINATION: GENERAL: A well-developed, not toxic looking man able to move the right upper extremity. VITAL SIGNS: Following vital signs on admission: Temperature 99.7, pulse 82, respirations 15, BP 142/82, O2 saturation 93% on room air. HEENMT: Normal. NECK: Normal. LUNGS: Clear. HEART: S1, S2. No gallop or murmur. ABDOMEN: Surgical scars of previous operation. Soft, no masses or megaly. EXTREMITIES: Revealed arthritis, right wrist, but the patient is able to move freely and he does have some degree of flexion and extension of the wrist with no significant pain and no external signs of infection. SKIN: Stasis dermatitis, legs. LABORATORY DATA: Revealed the synovial fluid was cloudy with a 243,000 rbc's and 20,740 nucleated cells, 94% neutrophils, and monosodium urate crystals present. BUN 46, creatinine 2.3, glucose 132, CRP 80 mg/L. WBC 10,000, hemoglobin 13.7, platelets 166,000. ESR 52 mm per hour. Cultures were obtained of the wrists and obviously no Gram stain or culture results available for our review. RADIOLOGY EVALUATION: X-ray of the right wrist revealed degenerative changes and soft tissue swelling. ASSESSMENT: 1. Arthritis, right wrist, possibly acute gout with significant elevation of cell count, no Gram stain available. 2. Chronic kidney disease. 3. Previous gout, right knee. 4. Coronary artery disease, status post coronary artery bypass graft, coronary artery stenting, permanent pacemaker. 5. Chronic kidney disease. 6. Diabetes mellitus. 7. Keflex allergy. SUGGESTIONS: Significant improvement overnight ____ with bacterial infection, but anything could happen. For a time being, I favor discontinuation of vancomycin in view of chronic kidney disease. Since the patient significantly [facility] [address] [place] [address] CONSULTATION Name: SEBASTIEN GREEN Room #: 455-P [facility] IN [facility]#: [id number] Admission: 10/27/18 Attend Phys: Dillon Sparks Discharge: Date of : [birth year] Report #: [id number] improved, I favor continuation of treatment as for gout with Medrol Dosepak. Must continue allopurinol. We will obtain uric acid. Favor no surgery. No systemic antibiotics. The patient could be discharged in 24-48 hours after we figure out the Gram stain, which is such a difficult test to perform. Dr. Sparks, thank you for requesting my suggestions. By: [id number] Froy Davenport MD /nt
[2018-10-27 07:27] VITALS: BP 146/82
[2018-10-27] MEDS ORDERED: AMARYL4 MG PO (07:33)
[2018-10-27] MEDS ORDERED: COUMADIN 4 MG TA4 M1 PO (07:34)
[2018-10-27] MEDS ORDERED: ALLOPURINOL 10100 M1 PO (07:35)
[2018-10-27] MEDS ORDERED: TRADJENTA5 MG (07:35)
[2018-10-27] MEDS ORDERED: COLCHICINE0.6 MG PO (07:36)
[2018-10-27 08:02] LABS: ABSOLUTE NEUTROPHILS 8.4 thou/uL (1.4-8.2); BASOPHILS 0.3 % (0.0-2.0); EOSINOPHILS 0.7 % (0.0-3.0); HEMATOCRIT 41.7 % (42.0-52.0); HEMOGLOBIN 13.7 gm/dL (14.0-18.0); LYMPHOCYTES 7.4 % (24.0-44.0); MCH 26.8 pg (26.0-34.0); MCV 81.3 fL (80.0-100.0); MONOCYTES 8.2 % (1.0-8.0); PLATELET COUNT 166 thou/uL (150-400); POLYS 83.4 % (36.0-66.0); RBC 5.13 mil/uL (4.50-6.00)
[2018-10-27 08:11] LABS: CALCIUM 9.9 mg/dL (8.5-10.1); CREATININE 2.3 mg/dL (0.7-1.3); POTASSIUM 4.3 mmol/L (3.5-5.1)
[2018-10-27 09:33] LABS: SOURCE SYNOVIAL
[2018-10-27 09:38] LABS: TOTAL VOLUME 0.5 mL
[2018-10-27 09:39] LABS: BF NUCLEATED CELLS 120740; BF RBC 243492; CLARITY CLOUDY; COLOR RED
[2018-10-27 09:43] LABS: BF MACROPHAGE 3; BF NEUTROPHILS 94; SOURCE HAND
[2018-10-27 12:33] VITALS: BP 127/64
[2018-10-27 14:44] VITALS: BP 134/68
[2018-10-27 16:30] VITALS: BP 136/74
[2018-10-27 19:19] VITALS: BP 108/62
--- NOTE | 2018-10-27 20:45 | NUR ---
Admitted in the floor from ER due to R ARM pain. Transferred to bed safely. A+Ox4, forgetful, [place], accompanied by son. On room air, as per pt's son pt is using O2 at 2lpm via nasal cannula at home- as needed- night shift manager nurse informed. Vital signs stable. Admission care rendered. On blood sugar monitoring-taken and recorded accordingly, sliding scale insulin given as prescribed. With SL at L AC- intact, flushing well. Assisted in ADLs. Able to use walker/cane to the toilet with minimal to standby assist. Pt's relative mentioned that they will send a copy of pt's advance directive once they find it- night staff informed, he also mentioned that he(pt's son Geovani) wants to be contacted first if anything happens to pt overnight as his mother(pt's ) will be having heart surgery on monday- night staff informed and aware. Pt mentioned that he hasn't taken his maintainance meds, re-started some of his meds, asked why warfarin is not included, called Dr Sparks, as per Dr Sparks, he temporary held meds just incase ortho will do procedure to pt- pt informed as well as night staff. Falls risk- falls bundle in place. Pt pain scale upon admission til shift change 2-3, will just ask nurse if he needs pain meds, pt made aware that he can have PRN pain meds. Vital signs stable. will continue monitoring. No episodes of nausea, vomiting or abdominal pain the whole shift.
--- NOTE | 2018-10-28 05:14 | NUR ---
PATIENT ALERT AND ORIENTED X4. UP WITH SBA. DENIES PAIN. COOPERATIVE WITH CARE. BS MONITORED PER ORDER. SLEPT WELL DURING THE NIGHT. WILL MONITOR.
[2018-10-28 09:35] VITALS: BP 96/66
[2018-10-28 15:34] VITALS: BP 98/66
--- NOTE | 2018-10-28 15:52 | NUR ---
The patient's blood pressure this morning was 96/52. The patient stated that he was asymptomatic. was paged through the online paging system at [phone]. The physician did not return the page. Morning blood pressure medications were with held. Will continue to monitor.
[2018-10-28 19:03] VITALS: BP 117/71
--- NOTE | 2018-10-29 03:43 | NUR ---
PROGRESS PT A/O X4 UP WITH SBA CANE OR WALKER GAIT STEADY. PAIN CONTROLLED WITH HYDROCODONE TAKING SPARINGLY. RIGHT/WRIST ARM TIRE CHANGER AND APPEARS SWOLLEN. PT REPORTS IT FEELS BETTER. ON 2 LITERS O2 VIA NC SATS WITHIN NORMAL LIMITS. LAC SL FLUSHES WITHOUT DIFFICULTY. HAS ORTHO AND INFECTIOUS DISEASE CONSULTS, RIGHT WRIST WAS ASPIRATED AWAITING RESULTS OF CULTURES. STEROID TAPER CONTINUES. CONTINUE POC.
[2018-10-29 08:14] VITALS: BP 121/68
--- NOTE | 2018-10-29 09:57 | HC ---
[facility] [place] [address] CONSULTATION Name: SEBASTIEN GREEN Room #: 455-P [facility] [place] ..#: [id number] Admission: 10/27/18 Attend Phys: Dillon Sparks Discharge: Date of : [birth year] Report #: [id number] THIS REPORT FOR: //name// CC: Dillon Fleming DATE OF SERVICE: 10/28/2018 CHIEF COMPLAINT: Right hand and wrist pain. HISTORY OF PRESENT ILLNESS: This active 84-year-old gentleman presents with right wrist and hand pain and swelling over the past several days. He has a history of gout in other joints, but never involving the right wrist. He has had no accidents, falls or injuries. He was seen in the emergency department and a wrist aspiration revealed evidence of uric acid, but also an extremely high white count. His peripheral white cell count is 10,000 with a left shift. He has been on antibiotics, but also has been started on prednisone. He states that his symptoms today are markedly improved. Objectively, he is alert and oriented and seems comfortable. The right wrist reveals no significant redness, warmth and only minimal swelling. He has good movement of the right wrist with minimal discomfort. There is no evidence of abscess nor significant fluid accumulation. Neurovascular status of the right hand is normal. He denies any other areas of joint discomfort. He feels the symptoms are markedly improved today and is questioning whether he might be ready for discharge. His peripheral white cell count is 10,000 and the right wrist aspiration from the emergency department revealed uric acid crystals. Although the white count and fluid is quite high, I still think it is most likely that this represents an acute gouty attack. He is already seeing clear symptom improvement. I doubt that surgical debridement will be necessary. I will continue to follow and watch as he remains in the hospital, but would anticipate no surgical intervention will be necessary. I am happy to respond if other questions should occur. <ELECTRONICALLY SIGNED> By: Saul Lopez MD 10/29/18 0957 [id number] Saul Lopez MD /nt
[2018-10-29] MEDS ORDERED: MEDROL DOSPAK21 TA1 PO (10:40)
[2018-10-29 10:55] VITALS: BP 121/68
[2018-10-29 11:28] VITALS: BP 121/68
--- NOTE | 2018-10-29 13:33 | NUR ---
Assumed pt care this am, vs have been stable. Gait is steady, pt is able to ambulate from bed to the toilet (standy aassists). Right wrist / arn has lessened in swelling. Pt denies any pain, no signs of distress have been noted. POC followed. Seen by hospitalist, dc instructions and prescriptions givem to the pt, son is at the bed side. IV removed, pt is now dc went home with the son.
--- NOTE | 2018-10-30 08:00 | EKG ---
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 Requested By: Dale Blackmon Order Number: [id number] MD: Stefan Sales Measurements Intervals [place] Rate: 90 P: -3 SD: 161 QRS: -5 QRSD: 136 T: 118 QT: 385 QTc: 471 Interpretive Statements Sinus rhythm Ventricular premature complex Nonspecific intraventricular conduction delay Inferior infarct, age indeterminate Compared to ECG 10/05/2016 22:27:25 Ventricular premature complex(es) now present Electronically Signed On 10-30-2018 8:00:32 CDT by Stefan Sales [email or web address] <ELECTRONICALLY SIGNED> By: Stefan Sales MD, [facility] 10/30/18 08 9 9 Stefan Sales MD, [facility] /EPI
== END 2018-10-29 13:38 | disposition home or self-care (01) | DRG 549 ==
LOC: ER 07:14 → EROBS 11:15 → 4W 14:44
PROVIDERS: Emergency Medicine; ADMIT Hospitalist
PROC: 0R9N3ZZ Drainage of Right Wrist Joint, Percutaneous Approach (ICD-10-PCS; principal; 2018-10-27)
DX: M00.9 Pyogenic arthritis, unspecified (principal); E46 Unspecified protein-calorie malnutrition; E78.00 Pure hypercholesterolemia, unspecified; E11.51 Type 2 diabetes mellitus with diabetic peripheral angiopathy without gangrene; N18.9 Chronic kidney disease, unspecified; I12.9 Hypertensive chronic kidney disease with stage 1 through stage 4 chronic kidney disease, or unspecified chronic kidney disease; E11.22 Type 2 diabetes mellitus with diabetic chronic kidney disease; M10.9 Gout, unspecified; I25.10 Atherosclerotic heart disease of native coronary artery without angina pectoris; M13.131 Monoarthritis, not elsewhere classified, right wrist; Z95.5 Presence of coronary angioplasty implant and graft; Z95.810 Presence of automatic (implantable) cardiac defibrillator; I25.2 Old myocardial infarction; Z95.1 Presence of aortocoronary bypass graft; Z87.81 Personal history of (healed) traumatic fracture; Z86.718 Personal history of other venous thrombosis and embolism; Z86.711 Personal history of pulmonary embolism; Z79.899 Other long term (current) drug therapy; Z79.4 Long term (current) use of insulin; Z79.82 Long term (current) use of aspirin; Z79.01 Long term (current) use of anticoagulants; Z91.048 Other nonmedicinal substance allergy status; Z88.8 Allergy status to other drugs, medicaments and biological substances; Z87.442 Personal history of urinary calculi; Z86.010 Personal history of colon polyps; Z80.8 Family history of malignant neoplasm of other organs or systems; Z68.36 Body mass index [BMI] 36.0-36.9, adult
CPT/HCPCS: 10040

== ENCOUNTER → 2019-03-21 | Outpatient (CLI) | payer OTHER ==
[~2019-03-21] MED LIST changes: +ALLOPURINOL 10100 M1 PO; +AMARYL4 MG PO; +LEVO-T75 MCG PO; +MEDROL DOSPAK21 TA1 PO; +TRADJENTA5 MG
== END ==
LOC: EDBD 09:56 → SJCVC 09:56
DX: Z51.81 Encounter for therapeutic drug level monitoring (principal); I25.118 Atherosclerotic heart disease of native coronary artery with other forms of angina pectoris; I13.0 Hypertensive heart and chronic kidney disease with heart failure and stage 1 through stage 4 chronic kidney disease, or unspecified chronic kidney disease; E11.22 Type 2 diabetes mellitus with diabetic chronic kidney disease; N18.3 Chronic kidney disease, stage 3 (moderate); I50.9 Heart failure, unspecified; E78.5 Hyperlipidemia, unspecified; E78.00 Pure hypercholesterolemia, unspecified; Z79.01 Long term (current) use of anticoagulants

== ENCOUNTER 2019-03-23 23:59 | Emergency (ER) | payer OTHER ==
[~2019-03-23] VITALS: Ht 167.6 cm; Wt 102.1 kg
[~2019-03-23 23:59] MED LIST changes: -LEVO-T75 MCG PO
[2019-03-24 00:35] LABS: ABSOLUTE NEUTROPHILS 8.7 thou/uL (1.4-8.2); BASOPHILS 0.7 % (0.0-2.0); HEMATOCRIT 41.2 % (42.0-52.0); HEMOGLOBIN 13.1 gm/dL (14.0-18.0); LYMPHOCYTES 11.9 % (24.0-44.0); MCH 26.8 pg (26.0-34.0); MCHC 31.8 g/dL (28.0-37.0); MCV 84.3 fL (80.0-100.0); MONOCYTES 5.4 % (1.0-8.0); PLATELET COUNT 213 thou/uL (150-400); RBC 4.89 mil/uL (4.50-6.00); RDW 17.1 % (10.5-14.5); WBC 10.9 thou/uL (4.0-11.0)
[2019-03-24 00:38] LABS: CALCIUM 9.3 mg/dL (8.5-10.1); CREATININE 2.4 mg/dL (0.7-1.3); POTASSIUM 4.9 mmol/L (3.5-5.1)
[2019-03-24 00:45] LABS: INR 2.2; PROTIME 22.3 Seconds (9.3-11.4)
[2019-03-24 00:46] LABS: SQUAMOUS None Seen /LPF (0-3); URINE RBC >20 Many /HPF (0-2); URINE WBC >25 Many /HPF (0-5); WBC CLUMPS Moderate (None Seen)
[2019-03-24 00:47] LABS: CASTS None Seen /LPF (None Seen); CRYSTALS None Seen /LPF (None Seen); MUCUS None Seen strn/LPF (None Seen)
[2019-03-24] MEDS ORDERED: LEVO-T75 MCG PO (00:47)
[2019-03-24 01:49] LABS: URINE BILIRUBIN NEGATIVE (Negative); URINE BLOOD 3+ (Negative); URINE CLARITY CLOUDY; URINE COLOR RED; URINE GLUCOSE-RANDOM* NEGATIVE (Negative); URINE KETONES NEGATIVE (Negative); URINE NITRITE-REFLEX NEGATIVE (Negative); URINE PROTEIN (DIPSTICK) 2+ (Negative); URINE SPECIFIC GRAVITY 1.015 (1.005-1.035); URINE UROBILINOGEN 0.2 E.U./dl (0.2-1.0)
[2019-03-24 01:50] LABS: URINE LEUKOCYTES-REFLEX 1+ (Negative)
[2019-03-24 04:43] VITALS: BP 109/55
== END 2019-03-24 04:44 | disposition short-term general hospital (02) ==
LOC: EDBD 23:59 → ER 23:59
PROVIDERS: Emergency Medicine Emergency Medical Services
DX: R31.9 Hematuria, unspecified (principal); Z79.01 Long term (current) use of anticoagulants; I12.9 Hypertensive chronic kidney disease with stage 1 through stage 4 chronic kidney disease, or unspecified chronic kidney disease; E11.22 Type 2 diabetes mellitus with diabetic chronic kidney disease; E78.00 Pure hypercholesterolemia, unspecified; M10.9 Gout, unspecified; N18.9 Chronic kidney disease, unspecified; Z86.718 Personal history of other venous thrombosis and embolism; Z95.5 Presence of coronary angioplasty implant and graft; Z95.0 Presence of cardiac pacemaker; Z88.1 Allergy status to other antibiotic agents; Z88.8 Allergy status to other drugs, medicaments and biological substances

== ENCOUNTER → 2019-04-15 | Outpatient (CLI) | payer OTHER ==
[~2019-04-15] MED LIST changes: +LEVO-T75 MCG PO
== END ==
LOC: SJCVC 10:07
DX: R94.31 Abnormal electrocardiogram [ECG] [EKG] (principal); I25.708 Atherosclerosis of coronary artery bypass graft(s), unspecified, with other forms of angina pectoris; I13.0 Hypertensive heart and chronic kidney disease with heart failure and stage 1 through stage 4 chronic kidney disease, or unspecified chronic kidney disease; E11.22 Type 2 diabetes mellitus with diabetic chronic kidney disease; N18.3 Chronic kidney disease, stage 3 (moderate); I50.22 Chronic systolic (congestive) heart failure; I71.2 Thoracic aortic aneurysm, without rupture; I65.23 Occlusion and stenosis of bilateral carotid arteries; E78.5 Hyperlipidemia, unspecified; G47.33 Obstructive sleep apnea (adult) (pediatric); E78.00 Pure hypercholesterolemia, unspecified; Z79.01 Long term (current) use of anticoagulants; Z95.5 Presence of coronary angioplasty implant and graft; Z95.1 Presence of aortocoronary bypass graft; Z79.899 Other long term (current) drug therapy; Z95.810 Presence of automatic (implantable) cardiac defibrillator

== ENCOUNTER → 2019-04-23 | Outpatient (CLI) | payer OTHER | LOC: SJCVC 10:08 | DX: Z51.81 Encounter for therapeutic drug level monitoring (principal); I13.0 Hypertensive heart and chronic kidney disease with heart failure and stage 1 through stage 4 chronic kidney disease, or unspecified chronic kidney disease; E11.22 Type 2 diabetes mellitus with diabetic chronic kidney disease; N18.3 Chronic kidney disease, stage 3 (moderate); I50.9 Heart failure, unspecified; I25.10 Atherosclerotic heart disease of native coronary artery without angina pectoris; E78.5 Hyperlipidemia, unspecified; E78.00 Pure hypercholesterolemia, unspecified; E66.09 Other obesity due to excess calories; Z68.39 Body mass index [BMI] 39.0-39.9, adult; Z79.01 Long term (current) use of anticoagulants; Z95.810 Presence of automatic (implantable) cardiac defibrillator ==

== ENCOUNTER → 2019-05-07 | Outpatient (CLI) | payer OTHER | LOC: SJCVCIMAG 11:08 | DX: Z79.01 Long term (current) use of anticoagulants (principal) ==

== ENCOUNTER → 2019-05-10 | Outpatient (CLI) | payer OTHER | LOC: SJCVC 13:01 | DX: Z51.81 Encounter for therapeutic drug level monitoring (principal); E11.9 Type 2 diabetes mellitus without complications; I13.0 Hypertensive heart and chronic kidney disease with heart failure and stage 1 through stage 4 chronic kidney disease, or unspecified chronic kidney disease; I50.9 Heart failure, unspecified; I25.10 Atherosclerotic heart disease of native coronary artery without angina pectoris; N18.9 Chronic kidney disease, unspecified; E78.00 Pure hypercholesterolemia, unspecified; Z79.01 Long term (current) use of anticoagulants ==

== ENCOUNTER → 2019-06-07 | Outpatient (CLI) | payer OTHER | LOC: SJCVC 10:51 | DX: Z51.81 Encounter for therapeutic drug level monitoring (principal); E11.22 Type 2 diabetes mellitus with diabetic chronic kidney disease; I13.0 Hypertensive heart and chronic kidney disease with heart failure and stage 1 through stage 4 chronic kidney disease, or unspecified chronic kidney disease; I50.9 Heart failure, unspecified; N18.3 Chronic kidney disease, stage 3 (moderate); E78.00 Pure hypercholesterolemia, unspecified; I25.10 Atherosclerotic heart disease of native coronary artery without angina pectoris; Z79.01 Long term (current) use of anticoagulants ==

== ENCOUNTER → 2019-06-14 | Outpatient (CLI) | payer OTHER | LOC: SJCVC 10:25 | DX: Z51.81 Encounter for therapeutic drug level monitoring (principal); Z79.01 Long term (current) use of anticoagulants ==

== ENCOUNTER → 2019-06-28 | Outpatient (CLI) | payer OTHER | LOC: SJCVC 10:29 | DX: Z51.81 Encounter for therapeutic drug level monitoring (principal); I25.10 Atherosclerotic heart disease of native coronary artery without angina pectoris; I13.0 Hypertensive heart and chronic kidney disease with heart failure and stage 1 through stage 4 chronic kidney disease, or unspecified chronic kidney disease; E11.22 Type 2 diabetes mellitus with diabetic chronic kidney disease; N18.3 Chronic kidney disease, stage 3 (moderate); I50.9 Heart failure, unspecified; E78.5 Hyperlipidemia, unspecified; E78.00 Pure hypercholesterolemia, unspecified; E66.09 Other obesity due to excess calories; Z68.39 Body mass index [BMI] 39.0-39.9, adult; Z79.01 Long term (current) use of anticoagulants; Z95.810 Presence of automatic (implantable) cardiac defibrillator; Z86.711 Personal history of pulmonary embolism; Z79.899 Other long term (current) drug therapy ==

== ENCOUNTER → 2019-07-12 | Outpatient (CLI) | payer OTHER | LOC: SJCVC 10:40 | DX: Z51.81 Encounter for therapeutic drug level monitoring (principal); I25.10 Atherosclerotic heart disease of native coronary artery without angina pectoris; I13.0 Hypertensive heart and chronic kidney disease with heart failure and stage 1 through stage 4 chronic kidney disease, or unspecified chronic kidney disease; E11.22 Type 2 diabetes mellitus with diabetic chronic kidney disease; N18.3 Chronic kidney disease, stage 3 (moderate); I50.9 Heart failure, unspecified; E78.5 Hyperlipidemia, unspecified; E78.00 Pure hypercholesterolemia, unspecified; Z79.01 Long term (current) use of anticoagulants; Z79.899 Other long term (current) drug therapy ==

== ENCOUNTER → 2019-07-19 | Outpatient (CLI) | payer OTHER | LOC: SJCVC 10:27 | PROVIDERS: ATTEND Internal Medicine | DX: Z51.81 Encounter for therapeutic drug level monitoring (principal); I25.10 Atherosclerotic heart disease of native coronary artery without angina pectoris; I13.0 Hypertensive heart and chronic kidney disease with heart failure and stage 1 through stage 4 chronic kidney disease, or unspecified chronic kidney disease; E11.22 Type 2 diabetes mellitus with diabetic chronic kidney disease; N18.3 Chronic kidney disease, stage 3 (moderate); I50.9 Heart failure, unspecified; E78.00 Pure hypercholesterolemia, unspecified; E78.5 Hyperlipidemia, unspecified ==

== ENCOUNTER → 2019-08-06 | Outpatient (CLI) | payer OTHER | LOC: SJCVC 10:26 | PROVIDERS: ATTEND Internal Medicine | DX: Z51.81 Encounter for therapeutic drug level monitoring (principal); I25.10 Atherosclerotic heart disease of native coronary artery without angina pectoris; I13.0 Hypertensive heart and chronic kidney disease with heart failure and stage 1 through stage 4 chronic kidney disease, or unspecified chronic kidney disease; E11.22 Type 2 diabetes mellitus with diabetic chronic kidney disease; N18.3 Chronic kidney disease, stage 3 (moderate); I50.9 Heart failure, unspecified; E78.5 Hyperlipidemia, unspecified; E78.00 Pure hypercholesterolemia, unspecified; Z86.711 Personal history of pulmonary embolism; Z95.810 Presence of automatic (implantable) cardiac defibrillator; Z79.01 Long term (current) use of anticoagulants; Z79.899 Other long term (current) drug therapy ==

== ENCOUNTER → 2019-08-14 | Outpatient (CLI) | payer OTHER | LOC: RAD 12:22 | PROVIDERS: ATTEND Internal Medicine Pulmonary Disease | DX: R06.09 Other forms of dyspnea (principal); I51.7 Cardiomegaly; Z86.711 Personal history of pulmonary embolism ==

== ENCOUNTER → 2019-09-03 | Outpatient (CLI) | payer OTHER | END | disposition home or self-care (01) | LOC: SJCVC 10:39 | PROVIDERS: ATTEND Internal Medicine | DX: Z51.81 Encounter for therapeutic drug level monitoring (principal); I25.10 Atherosclerotic heart disease of native coronary artery without angina pectoris; G47.33 Obstructive sleep apnea (adult) (pediatric); E11.22 Type 2 diabetes mellitus with diabetic chronic kidney disease; I12.9 Hypertensive chronic kidney disease with stage 1 through stage 4 chronic kidney disease, or unspecified chronic kidney disease; N18.3 Chronic kidney disease, stage 3 (moderate); E78.00 Pure hypercholesterolemia, unspecified; Z68.39 Body mass index [BMI] 39.0-39.9, adult; Z79.01 Long term (current) use of anticoagulants ==

== ENCOUNTER → 2019-09-24 | Outpatient (CLI) | payer OTHER | LOC: SJCVC 10:02 | PROVIDERS: ATTEND Internal Medicine | DX: Z51.81 Encounter for therapeutic drug level monitoring (principal); I25.10 Atherosclerotic heart disease of native coronary artery without angina pectoris; I13.0 Hypertensive heart and chronic kidney disease with heart failure and stage 1 through stage 4 chronic kidney disease, or unspecified chronic kidney disease; E11.22 Type 2 diabetes mellitus with diabetic chronic kidney disease; N18.3 Chronic kidney disease, stage 3 (moderate); I50.9 Heart failure, unspecified; E78.5 Hyperlipidemia, unspecified; E78.00 Pure hypercholesterolemia, unspecified; Z95.810 Presence of automatic (implantable) cardiac defibrillator; Z79.01 Long term (current) use of anticoagulants; Z79.899 Other long term (current) drug therapy ==

== ENCOUNTER → 2019-10-15 | Outpatient (CLI) | payer OTHER | LOC: SJCVCIMAG 09:09 | PROVIDERS: ATTEND Internal Medicine | DX: I65.23 Occlusion and stenosis of bilateral carotid arteries (principal); I08.3 Combined rheumatic disorders of mitral, aortic and tricuspid valves; I10 Essential (primary) hypertension; E78.5 Hyperlipidemia, unspecified ==

== ENCOUNTER → 2019-10-22 | Outpatient (CLI) | payer OTHER | LOC: SJCVC 14:54 | PROVIDERS: ATTEND Internal Medicine | DX: R94.31 Abnormal electrocardiogram [ECG] [EKG] (principal); I25.708 Atherosclerosis of coronary artery bypass graft(s), unspecified, with other forms of angina pectoris; I13.0 Hypertensive heart and chronic kidney disease with heart failure and stage 1 through stage 4 chronic kidney disease, or unspecified chronic kidney disease; E11.22 Type 2 diabetes mellitus with diabetic chronic kidney disease; N18.3 Chronic kidney disease, stage 3 (moderate); I50.22 Chronic systolic (congestive) heart failure; I65.23 Occlusion and stenosis of bilateral carotid arteries; E78.5 Hyperlipidemia, unspecified; G47.33 Obstructive sleep apnea (adult) (pediatric); I71.2 Thoracic aortic aneurysm, without rupture; Z95.810 Presence of automatic (implantable) cardiac defibrillator; Z79.01 Long term (current) use of anticoagulants; Z79.899 Other long term (current) drug therapy ==

== ENCOUNTER → 2019-11-12 | Outpatient (CLI) | payer OTHER | LOC: SJCVC 10:12 | PROVIDERS: ATTEND Internal Medicine | DX: Z51.81 Encounter for therapeutic drug level monitoring (principal); E11.9 Type 2 diabetes mellitus without complications; I11.0 Hypertensive heart disease with heart failure; I50.9 Heart failure, unspecified; E78.00 Pure hypercholesterolemia, unspecified; Z79.01 Long term (current) use of anticoagulants ==

== ENCOUNTER → 2019-11-28 | Outpatient (CLI) | payer OTHER | LOC: SJCVC 09:54 | PROVIDERS: ATTEND Internal Medicine | DX: Z51.81 Encounter for therapeutic drug level monitoring (principal); G47.33 Obstructive sleep apnea (adult) (pediatric); E11.22 Type 2 diabetes mellitus with diabetic chronic kidney disease; I13.0 Hypertensive heart and chronic kidney disease with heart failure and stage 1 through stage 4 chronic kidney disease, or unspecified chronic kidney disease; N18.30 Chronic kidney disease, stage 3 unspecified; I50.9 Heart failure, unspecified; I25.5 Ischemic cardiomyopathy; E78.00 Pure hypercholesterolemia, unspecified; Z68.39 Body mass index [BMI] 39.0-39.9, adult; Z79.01 Long term (current) use of anticoagulants; Z79.899 Other long term (current) drug therapy ==

== ENCOUNTER → 2019-12-12 | Outpatient (CLI) | payer OTHER | LOC: SJCVC 10:10 | PROVIDERS: ATTEND Internal Medicine | DX: Z51.81 Encounter for therapeutic drug level monitoring (principal); E11.22 Type 2 diabetes mellitus with diabetic chronic kidney disease; I13.0 Hypertensive heart and chronic kidney disease with heart failure and stage 1 through stage 4 chronic kidney disease, or unspecified chronic kidney disease; I50.9 Heart failure, unspecified; N18.30 Chronic kidney disease, stage 3 unspecified; G47.33 Obstructive sleep apnea (adult) (pediatric); I25.10 Atherosclerotic heart disease of native coronary artery without angina pectoris; I42.9 Cardiomyopathy, unspecified; E78.00 Pure hypercholesterolemia, unspecified; Z68.39 Body mass index [BMI] 39.0-39.9, adult; Z79.01 Long term (current) use of anticoagulants; Z79.899 Other long term (current) drug therapy ==

== ENCOUNTER → 2020-01-09 | Outpatient (CLI) | payer OTHER | LOC: SJCVC 10:12 | PROVIDERS: ATTEND Internal Medicine | DX: Z51.81 Encounter for therapeutic drug level monitoring (principal); Z79.01 Long term (current) use of anticoagulants ==

== ENCOUNTER → 2020-02-06 | Outpatient (CLI) | payer OTHER | LOC: SJCVC 11:16 | PROVIDERS: ATTEND Internal Medicine | DX: Z51.81 Encounter for therapeutic drug level monitoring (principal); Z79.01 Long term (current) use of anticoagulants ==

== ENCOUNTER → 2020-03-06 | Outpatient (CLI) | payer OTHER | LOC: SJCVC 10:23 | PROVIDERS: ATTEND Internal Medicine | DX: Z51.81 Encounter for therapeutic drug level monitoring (principal); G47.33 Obstructive sleep apnea (adult) (pediatric); I25.10 Atherosclerotic heart disease of native coronary artery without angina pectoris; E11.22 Type 2 diabetes mellitus with diabetic chronic kidney disease; I13.0 Hypertensive heart and chronic kidney disease with heart failure and stage 1 through stage 4 chronic kidney disease, or unspecified chronic kidney disease; I50.9 Heart failure, unspecified; N18.30 Chronic kidney disease, stage 3 unspecified; I42.9 Cardiomyopathy, unspecified; E78.00 Pure hypercholesterolemia, unspecified; E78.5 Hyperlipidemia, unspecified; Z68.39 Body mass index [BMI] 39.0-39.9, adult; Z79.01 Long term (current) use of anticoagulants; Z79.899 Other long term (current) drug therapy; Z86.711 Personal history of pulmonary embolism ==

== ENCOUNTER → 2020-03-27 | Outpatient (CLI) | payer OTHER | LOC: SJCVC 09:58 | PROVIDERS: ATTEND Internal Medicine | DX: Z51.81 Encounter for therapeutic drug level monitoring (principal); G47.33 Obstructive sleep apnea (adult) (pediatric); I25.10 Atherosclerotic heart disease of native coronary artery without angina pectoris; E11.22 Type 2 diabetes mellitus with diabetic chronic kidney disease; I13.0 Hypertensive heart and chronic kidney disease with heart failure and stage 1 through stage 4 chronic kidney disease, or unspecified chronic kidney disease; I50.9 Heart failure, unspecified; N18.30 Chronic kidney disease, stage 3 unspecified; I42.9 Cardiomyopathy, unspecified; E78.5 Hyperlipidemia, unspecified; E78.00 Pure hypercholesterolemia, unspecified; Z68.39 Body mass index [BMI] 39.0-39.9, adult; Z79.01 Long term (current) use of anticoagulants; Z79.899 Other long term (current) drug therapy ==

== ENCOUNTER → 2020-04-10 | Outpatient (CLI) | payer OTHER | LOC: SJCVC 09:53 | PROVIDERS: ATTEND Internal Medicine | DX: Z51.81 Encounter for therapeutic drug level monitoring (principal); G47.33 Obstructive sleep apnea (adult) (pediatric); R09.02 Hypoxemia; I25.10 Atherosclerotic heart disease of native coronary artery without angina pectoris; I25.5 Ischemic cardiomyopathy; I27.20 Pulmonary hypertension, unspecified; E11.22 Type 2 diabetes mellitus with diabetic chronic kidney disease; I13.0 Hypertensive heart and chronic kidney disease with heart failure and stage 1 through stage 4 chronic kidney disease, or unspecified chronic kidney disease; I50.9 Heart failure, unspecified; N18.30 Chronic kidney disease, stage 3 unspecified; E78.5 Hyperlipidemia, unspecified; E78.00 Pure hypercholesterolemia, unspecified; E66.09 Other obesity due to excess calories; Z95.810 Presence of automatic (implantable) cardiac defibrillator; Z79.01 Long term (current) use of anticoagulants; Z68.39 Body mass index [BMI] 39.0-39.9, adult ==

== ENCOUNTER → 2020-07-08 | Outpatient (CLI) | payer OTHER | LOC: SJCVC 11:18 | PROVIDERS: ATTEND Internal Medicine | DX: Z51.81 Encounter for therapeutic drug level monitoring (principal); E11.9 Type 2 diabetes mellitus without complications; G47.33 Obstructive sleep apnea (adult) (pediatric); G47.34 Idiopathic sleep related nonobstructive alveolar hypoventilation; I25.10 Atherosclerotic heart disease of native coronary artery without angina pectoris; I25.5 Ischemic cardiomyopathy; I13.0 Hypertensive heart and chronic kidney disease with heart failure and stage 1 through stage 4 chronic kidney disease, or unspecified chronic kidney disease; N18.30 Chronic kidney disease, stage 3 unspecified; E66.09 Other obesity due to excess calories; Z68.39 Body mass index [BMI] 39.0-39.9, adult; Z95.810 Presence of automatic (implantable) cardiac defibrillator; Z79.01 Long term (current) use of anticoagulants ==

== ENCOUNTER → 2020-09-07 | Outpatient (CLI) | payer OTHER ==
[~2020-09-07] MED LIST changes: +ALLOPURINOL 30300 M1 PO; +CARVEDILOL12.5 MG PO; +GLIMEPIRIDE4 MG PO; +ISOSORBIDE DINI30 MG PO; +LEVOTHYROXINE75 MCG PO; +LIPITOR 40 MG T40 M1 PO; +NEURONTIN 300M300 M2 PO; +PROSCAR 5MG TABL5 M1 PO; +PROTONIX40 M2 PO; +SPIRONOLACTONE25 MG PO; +TAMSULOSIN HCL0.4 MG PO; +WARFARIN SODIUM1 MG PO
--- NOTE | 2020-09-09 16:09 | PATH ---
[facility] [address] [place] [address] PATHOLOGY RPT PROCEDURE Name: SEBASTIEN GREEN GENE Room #: REG SELMAMarcos Recinos.#: [id number] Admission: 09/07/20 Date of : [birth year] Discharge: Report #: [id number] Path Case #: [id number] [facility] Accession Number: [id number] . 01 Material submitted: . esophagus - ESOPHAGEAL BX R/O EOSINOPHILIC ESOPHAGITIS . 01 Clinical history: . EGD DYSPHAGIA . 02 Diagnosis: Squamous mucosa, esophageal, rule out eosinophilic esophagitis, endoscopic biopsy: - Mild active esophagitis with features of reflux esophagitis. - Negative for increase in intraepithelial eosinophils. - Negative for intestinal metaplasia or dysplasia. (IUV:pit; 09/09/2020) QTP 09/09/2020 1526 Local . 02 Electronically signed: . Jannet De Paz MD, Pathologist NPI- [id number] . 01 Gross description: . The specimen is submitted in formalin, labeled "Green, Bill, esophageal biopsy". Received are 4 segments of pale starks tissue ranging in size from 0.3 to 0.5 cm in maximum dimensions. The specimen is submitted in cassette A1. ([facility]; 09/08/2020) NRI/NRI 09/08/2020 1146 Local . 02 Pathologist provided ICD-10: K20.90 . 02 CPT . 494070 Specimen Comment: A courtesy copy of this report has been sent to [phone] Specimen Comment: Report sent to Performed at: [address], [place], [place] [id number] MD Edgar Chapman MD Phone: [phone] Performed at: [address] [id number] MD Jannet De Paz MD Phone: [phone]
== END | disposition home or self-care (01) ==
LOC: GI 09:15
PROVIDERS: ATTEND Internal Medicine Gastroenterology
DX: R13.10 Dysphagia, unspecified (principal); K21.00 Gastro-esophageal reflux disease with esophagitis, without bleeding; I13.0 Hypertensive heart and chronic kidney disease with heart failure and stage 1 through stage 4 chronic kidney disease, or unspecified chronic kidney disease; E11.22 Type 2 diabetes mellitus with diabetic chronic kidney disease; N18.30 Chronic kidney disease, stage 3 unspecified; I50.9 Heart failure, unspecified; E78.00 Pure hypercholesterolemia, unspecified; I25.2 Old myocardial infarction; I25.10 Atherosclerotic heart disease of native coronary artery without angina pectoris; E03.9 Hypothyroidism, unspecified; M10.9 Gout, unspecified; Z98.890 Other specified postprocedural states; Z79.899 Other long term (current) drug therapy; Z95.1 Presence of aortocoronary bypass graft; Z88.8 Allergy status to other drugs, medicaments and biological substances
CPT/HCPCS: 62110; 62900

== ENCOUNTER → 2020-09-21 | Outpatient (CLI) | payer OTHER | LOC: SJCVC 10:21 | PROVIDERS: ATTEND Internal Medicine | DX: Z51.81 Encounter for therapeutic drug level monitoring (principal); E11.9 Type 2 diabetes mellitus without complications; G47.33 Obstructive sleep apnea (adult) (pediatric); I10 Essential (primary) hypertension; I25.5 Ischemic cardiomyopathy; E11.22 Type 2 diabetes mellitus with diabetic chronic kidney disease; N18.30 Chronic kidney disease, stage 3 unspecified; E78.5 Hyperlipidemia, unspecified; E66.3 Overweight; E78.00 Pure hypercholesterolemia, unspecified; Z79.01 Long term (current) use of anticoagulants ==

== ENCOUNTER → 2020-09-28 | Outpatient (CLI) | payer OTHER | LOC: SJCVC 09:23 | PROVIDERS: ATTEND Internal Medicine | DX: Z51.81 Encounter for therapeutic drug level monitoring (principal); E11.9 Type 2 diabetes mellitus without complications; G47.33 Obstructive sleep apnea (adult) (pediatric); I65.23 Occlusion and stenosis of bilateral carotid arteries; I25.10 Atherosclerotic heart disease of native coronary artery without angina pectoris; I13.0 Hypertensive heart and chronic kidney disease with heart failure and stage 1 through stage 4 chronic kidney disease, or unspecified chronic kidney disease; I50.9 Heart failure, unspecified; N18.30 Chronic kidney disease, stage 3 unspecified; I42.9 Cardiomyopathy, unspecified; E78.00 Pure hypercholesterolemia, unspecified; E78.5 Hyperlipidemia, unspecified; E66.9 Obesity, unspecified; Z68.39 Body mass index [BMI] 39.0-39.9, adult; Z95.810 Presence of automatic (implantable) cardiac defibrillator; Z79.01 Long term (current) use of anticoagulants; Z79.899 Other long term (current) drug therapy ==

== ENCOUNTER → 2020-10-08 | Outpatient (CLI) | payer OTHER | LOC: SJCVC 09:25 | PROVIDERS: ATTEND Internal Medicine | DX: Z51.81 Encounter for therapeutic drug level monitoring (principal); E11.9 Type 2 diabetes mellitus without complications; G47.33 Obstructive sleep apnea (adult) (pediatric); I25.10 Atherosclerotic heart disease of native coronary artery without angina pectoris; I50.9 Heart failure, unspecified; I13.0 Hypertensive heart and chronic kidney disease with heart failure and stage 1 through stage 4 chronic kidney disease, or unspecified chronic kidney disease; N18.30 Chronic kidney disease, stage 3 unspecified; E78.00 Pure hypercholesterolemia, unspecified; E66.9 Obesity, unspecified; Z68.39 Body mass index [BMI] 39.0-39.9, adult; Z79.01 Long term (current) use of anticoagulants; Z79.899 Other long term (current) drug therapy ==

== ENCOUNTER → 2020-10-22 | Outpatient (CLI) | payer OTHER | LOC: SJCVC 09:24 | PROVIDERS: ATTEND Internal Medicine | DX: Z51.81 Encounter for therapeutic drug level monitoring (principal); I50.9 Heart failure, unspecified; I11.0 Hypertensive heart disease with heart failure; E78.00 Pure hypercholesterolemia, unspecified; E11.9 Type 2 diabetes mellitus without complications; Z79.01 Long term (current) use of anticoagulants; Z79.899 Other long term (current) drug therapy; Z79.84 Long term (current) use of oral hypoglycemic drugs; G47.33 Obstructive sleep apnea (adult) (pediatric); Z88.1 Allergy status to other antibiotic agents; Z86.73 Personal history of transient ischemic attack (TIA), and cerebral infarction without residual deficits; Z86.711 Personal history of pulmonary embolism; Z95.810 Presence of automatic (implantable) cardiac defibrillator; Z95.5 Presence of coronary angioplasty implant and graft ==

== ENCOUNTER → 2020-10-29 | Outpatient (CLI) | payer OTHER | LOC: SJCVC 09:26 | PROVIDERS: ATTEND Internal Medicine | DX: Z51.81 Encounter for therapeutic drug level monitoring (principal); E78.00 Pure hypercholesterolemia, unspecified; I10 Essential (primary) hypertension; E11.9 Type 2 diabetes mellitus without complications; I25.10 Atherosclerotic heart disease of native coronary artery without angina pectoris; Z79.01 Long term (current) use of anticoagulants; Z79.84 Long term (current) use of oral hypoglycemic drugs; Z79.899 Other long term (current) drug therapy; Z88.1 Allergy status to other antibiotic agents ==

== ENCOUNTER → 2020-11-05 | Outpatient (CLI) | payer OTHER | LOC: SJCVC 09:42 | PROVIDERS: ATTEND Internal Medicine | DX: Z51.81 Encounter for therapeutic drug level monitoring (principal); G47.33 Obstructive sleep apnea (adult) (pediatric); I42.9 Cardiomyopathy, unspecified; I13.0 Hypertensive heart and chronic kidney disease with heart failure and stage 1 through stage 4 chronic kidney disease, or unspecified chronic kidney disease; E11.22 Type 2 diabetes mellitus with diabetic chronic kidney disease; N18.9 Chronic kidney disease, unspecified; I50.9 Heart failure, unspecified; E78.00 Pure hypercholesterolemia, unspecified; Z79.01 Long term (current) use of anticoagulants; Z79.899 Other long term (current) drug therapy; Z88.8 Allergy status to other drugs, medicaments and biological substances ==

== ENCOUNTER → 2020-11-16 | Outpatient (CLI) | payer OTHER | LOC: HYPER 09:14 | PROVIDERS: ATTEND Emergency Medicine | DX: E11.622 Type 2 diabetes mellitus with other skin ulcer (principal); L97.822 Non-pressure chronic ulcer of other part of left lower leg with fat layer exposed; E11.22 Type 2 diabetes mellitus with diabetic chronic kidney disease; I13.0 Hypertensive heart and chronic kidney disease with heart failure and stage 1 through stage 4 chronic kidney disease, or unspecified chronic kidney disease; N18.30 Chronic kidney disease, stage 3 unspecified; I50.22 Chronic systolic (congestive) heart failure; G47.33 Obstructive sleep apnea (adult) (pediatric); E78.00 Pure hypercholesterolemia, unspecified; I65.23 Occlusion and stenosis of bilateral carotid arteries; I25.10 Atherosclerotic heart disease of native coronary artery without angina pectoris; I25.2 Old myocardial infarction; R60.0 Localized edema; Z95.810 Presence of automatic (implantable) cardiac defibrillator; Z95.1 Presence of aortocoronary bypass graft; Z79.01 Long term (current) use of anticoagulants; Z86.73 Personal history of transient ischemic attack (TIA), and cerebral infarction without residual deficits; Z86.711 Personal history of pulmonary embolism ==

== ENCOUNTER → 2020-11-19 | Outpatient (CLI) | payer OTHER | LOC: SJCVCIMAG 08:20 | PROVIDERS: ATTEND Internal Medicine | DX: R94.31 Abnormal electrocardiogram [ECG] [EKG] (principal); I08.3 Combined rheumatic disorders of mitral, aortic and tricuspid valves; I65.23 Occlusion and stenosis of bilateral carotid arteries; I25.118 Atherosclerotic heart disease of native coronary artery with other forms of angina pectoris; E11.22 Type 2 diabetes mellitus with diabetic chronic kidney disease; I13.0 Hypertensive heart and chronic kidney disease with heart failure and stage 1 through stage 4 chronic kidney disease, or unspecified chronic kidney disease; N18.30 Chronic kidney disease, stage 3 unspecified; I50.22 Chronic systolic (congestive) heart failure; E78.5 Hyperlipidemia, unspecified; G47.33 Obstructive sleep apnea (adult) (pediatric); I71.2 Thoracic aortic aneurysm, without rupture; I26.99 Other pulmonary embolism without acute cor pulmonale; Z79.01 Long term (current) use of anticoagulants; Z95.810 Presence of automatic (implantable) cardiac defibrillator; Z79.899 Other long term (current) drug therapy; Z88.1 Allergy status to other antibiotic agents ==

== ENCOUNTER → 2020-12-01 | Outpatient (CLI) | payer OTHER | LOC: HYPER 08:15 | PROVIDERS: ATTEND Emergency Medicine | DX: E11.622 Type 2 diabetes mellitus with other skin ulcer (principal); L97.822 Non-pressure chronic ulcer of other part of left lower leg with fat layer exposed; I87.2 Venous insufficiency (chronic) (peripheral); R60.0 Localized edema; I25.10 Atherosclerotic heart disease of native coronary artery without angina pectoris; E11.22 Type 2 diabetes mellitus with diabetic chronic kidney disease; I13.0 Hypertensive heart and chronic kidney disease with heart failure and stage 1 through stage 4 chronic kidney disease, or unspecified chronic kidney disease; I50.22 Chronic systolic (congestive) heart failure; N18.30 Chronic kidney disease, stage 3 unspecified; E78.00 Pure hypercholesterolemia, unspecified; I65.23 Occlusion and stenosis of bilateral carotid arteries; G47.33 Obstructive sleep apnea (adult) (pediatric); E66.9 Obesity, unspecified; Z68.41 Body mass index [BMI] 40.0-44.9, adult; Z95.810 Presence of automatic (implantable) cardiac defibrillator; Z86.711 Personal history of pulmonary embolism; Z86.73 Personal history of transient ischemic attack (TIA), and cerebral infarction without residual deficits; Z79.84 Long term (current) use of oral hypoglycemic drugs; Z79.01 Long term (current) use of anticoagulants; Z79.899 Other long term (current) drug therapy ==

== ENCOUNTER → 2020-12-16 | Outpatient (CLI) | payer OTHER | LOC: HYPER 09:29 | PROVIDERS: ATTEND Emergency Medicine | DX: E11.622 Type 2 diabetes mellitus with other skin ulcer (principal); L97.822 Non-pressure chronic ulcer of other part of left lower leg with fat layer exposed; I87.2 Venous insufficiency (chronic) (peripheral); R60.0 Localized edema; I25.10 Atherosclerotic heart disease of native coronary artery without angina pectoris; E11.22 Type 2 diabetes mellitus with diabetic chronic kidney disease; I13.0 Hypertensive heart and chronic kidney disease with heart failure and stage 1 through stage 4 chronic kidney disease, or unspecified chronic kidney disease; I50.22 Chronic systolic (congestive) heart failure; N18.30 Chronic kidney disease, stage 3 unspecified; E78.00 Pure hypercholesterolemia, unspecified; E66.01 Morbid (severe) obesity due to excess calories; I65.23 Occlusion and stenosis of bilateral carotid arteries; G47.33 Obstructive sleep apnea (adult) (pediatric); Z68.41 Body mass index [BMI] 40.0-44.9, adult; Z95.810 Presence of automatic (implantable) cardiac defibrillator; Z86.711 Personal history of pulmonary embolism; Z79.84 Long term (current) use of oral hypoglycemic drugs; Z79.01 Long term (current) use of anticoagulants ==

== ENCOUNTER → 2020-12-17 | Outpatient (CLI) | payer OTHER | LOC: RAD 09:48 | PROVIDERS: ATTEND Urology | DX: I87.2 Venous insufficiency (chronic) (peripheral) (principal); K59.00 Constipation, unspecified; Z87.448 Personal history of other diseases of urinary system ==

== ENCOUNTER → 2020-12-22 | Outpatient (CLI) | payer OTHER | LOC: HYPER 12:56 | PROVIDERS: ATTEND Emergency Medicine | DX: E11.622 Type 2 diabetes mellitus with other skin ulcer (principal); L97.822 Non-pressure chronic ulcer of other part of left lower leg with fat layer exposed; I87.2 Venous insufficiency (chronic) (peripheral); R60.0 Localized edema; I65.23 Occlusion and stenosis of bilateral carotid arteries; E11.22 Type 2 diabetes mellitus with diabetic chronic kidney disease; I13.0 Hypertensive heart and chronic kidney disease with heart failure and stage 1 through stage 4 chronic kidney disease, or unspecified chronic kidney disease; I50.22 Chronic systolic (congestive) heart failure; N18.30 Chronic kidney disease, stage 3 unspecified; I25.10 Atherosclerotic heart disease of native coronary artery without angina pectoris; E78.00 Pure hypercholesterolemia, unspecified; G47.33 Obstructive sleep apnea (adult) (pediatric); Z95.810 Presence of automatic (implantable) cardiac defibrillator; Z68.41 Body mass index [BMI] 40.0-44.9, adult; Z86.711 Personal history of pulmonary embolism; Z86.73 Personal history of transient ischemic attack (TIA), and cerebral infarction without residual deficits; Z79.01 Long term (current) use of anticoagulants; Z79.84 Long term (current) use of oral hypoglycemic drugs; Z79.899 Other long term (current) drug therapy ==

== ENCOUNTER → 2021-01-14 | Outpatient (CLI) | payer OTHER | LOC: SJCVC 10:00 | PROVIDERS: ATTEND Internal Medicine | DX: Z51.81 Encounter for therapeutic drug level monitoring (principal); Z79.01 Long term (current) use of anticoagulants ==

== ENCOUNTER → 2021-01-19 | Outpatient (CLI) | payer OTHER | LOC: HYPER 10:59 | PROVIDERS: ATTEND Emergency Medicine | DX: E11.622 Type 2 diabetes mellitus with other skin ulcer (principal); L97.822 Non-pressure chronic ulcer of other part of left lower leg with fat layer exposed; L97.222 Non-pressure chronic ulcer of left calf with fat layer exposed; I87.2 Venous insufficiency (chronic) (peripheral); R60.0 Localized edema; I25.10 Atherosclerotic heart disease of native coronary artery without angina pectoris; E11.22 Type 2 diabetes mellitus with diabetic chronic kidney disease; I13.0 Hypertensive heart and chronic kidney disease with heart failure and stage 1 through stage 4 chronic kidney disease, or unspecified chronic kidney disease; I50.22 Chronic systolic (congestive) heart failure; N18.30 Chronic kidney disease, stage 3 unspecified; I65.23 Occlusion and stenosis of bilateral carotid arteries; E66.9 Obesity, unspecified; G47.33 Obstructive sleep apnea (adult) (pediatric); E78.00 Pure hypercholesterolemia, unspecified; Z95.810 Presence of automatic (implantable) cardiac defibrillator; Z68.41 Body mass index [BMI] 40.0-44.9, adult; Z86.711 Personal history of pulmonary embolism; Z86.73 Personal history of transient ischemic attack (TIA), and cerebral infarction without residual deficits; Z79.01 Long term (current) use of anticoagulants; Z79.899 Other long term (current) drug therapy ==

== ENCOUNTER → 2021-02-02 | Outpatient (CLI) | payer OTHER | LOC: HYPER 13:10 | PROVIDERS: ATTEND Emergency Medicine | DX: E11.622 Type 2 diabetes mellitus with other skin ulcer (principal); L97.822 Non-pressure chronic ulcer of other part of left lower leg with fat layer exposed; L84 Corns and callosities; I87.2 Venous insufficiency (chronic) (peripheral); R60.0 Localized edema; I25.10 Atherosclerotic heart disease of native coronary artery without angina pectoris; E11.22 Type 2 diabetes mellitus with diabetic chronic kidney disease; I13.0 Hypertensive heart and chronic kidney disease with heart failure and stage 1 through stage 4 chronic kidney disease, or unspecified chronic kidney disease; I50.22 Chronic systolic (congestive) heart failure; N18.30 Chronic kidney disease, stage 3 unspecified; I65.23 Occlusion and stenosis of bilateral carotid arteries; I25.5 Ischemic cardiomyopathy; E66.01 Morbid (severe) obesity due to excess calories; G47.33 Obstructive sleep apnea (adult) (pediatric); E78.00 Pure hypercholesterolemia, unspecified; Z95.810 Presence of automatic (implantable) cardiac defibrillator; Z68.41 Body mass index [BMI] 40.0-44.9, adult; Z86.711 Personal history of pulmonary embolism; Z86.73 Personal history of transient ischemic attack (TIA), and cerebral infarction without residual deficits; Z79.01 Long term (current) use of anticoagulants ==

== ENCOUNTER → 2021-02-11 | Outpatient (CLI) | payer OTHER | LOC: SJCVC 10:00 | PROVIDERS: ATTEND Internal Medicine | DX: Z51.81 Encounter for therapeutic drug level monitoring (principal); Z79.01 Long term (current) use of anticoagulants ==

== ENCOUNTER → 2021-02-23 | Outpatient (CLI) | payer OTHER | LOC: HYPER 12:42 | PROVIDERS: ATTEND Emergency Medicine | DX: E11.622 Type 2 diabetes mellitus with other skin ulcer (principal); L97.822 Non-pressure chronic ulcer of other part of left lower leg with fat layer exposed; L84 Corns and callosities; I87.2 Venous insufficiency (chronic) (peripheral); R60.0 Localized edema; I25.10 Atherosclerotic heart disease of native coronary artery without angina pectoris; E11.22 Type 2 diabetes mellitus with diabetic chronic kidney disease; I13.0 Hypertensive heart and chronic kidney disease with heart failure and stage 1 through stage 4 chronic kidney disease, or unspecified chronic kidney disease; I50.22 Chronic systolic (congestive) heart failure; N18.30 Chronic kidney disease, stage 3 unspecified; I65.23 Occlusion and stenosis of bilateral carotid arteries; I25.5 Ischemic cardiomyopathy; E66.01 Morbid (severe) obesity due to excess calories; G47.33 Obstructive sleep apnea (adult) (pediatric); E78.00 Pure hypercholesterolemia, unspecified; Z95.810 Presence of automatic (implantable) cardiac defibrillator; Z68.41 Body mass index [BMI] 40.0-44.9, adult; Z86.711 Personal history of pulmonary embolism; Z86.73 Personal history of transient ischemic attack (TIA), and cerebral infarction without residual deficits; Z79.01 Long term (current) use of anticoagulants ==

== ENCOUNTER → 2021-03-18 | Outpatient (CLI) | payer OTHER | LOC: HYPER 08:33 | PROVIDERS: ATTEND Emergency Medicine | DX: E11.622 Type 2 diabetes mellitus with other skin ulcer (principal); L97.822 Non-pressure chronic ulcer of other part of left lower leg with fat layer exposed; L84 Corns and callosities; I87.2 Venous insufficiency (chronic) (peripheral); R60.0 Localized edema; I25.10 Atherosclerotic heart disease of native coronary artery without angina pectoris; E11.22 Type 2 diabetes mellitus with diabetic chronic kidney disease; I13.0 Hypertensive heart and chronic kidney disease with heart failure and stage 1 through stage 4 chronic kidney disease, or unspecified chronic kidney disease; I50.22 Chronic systolic (congestive) heart failure; N18.30 Chronic kidney disease, stage 3 unspecified; I65.23 Occlusion and stenosis of bilateral carotid arteries; I25.5 Ischemic cardiomyopathy; E66.01 Morbid (severe) obesity due to excess calories; G47.33 Obstructive sleep apnea (adult) (pediatric); E78.00 Pure hypercholesterolemia, unspecified; Z95.810 Presence of automatic (implantable) cardiac defibrillator; Z68.41 Body mass index [BMI] 40.0-44.9, adult; Z86.711 Personal history of pulmonary embolism; Z86.73 Personal history of transient ischemic attack (TIA), and cerebral infarction without residual deficits; Z79.01 Long term (current) use of anticoagulants ==

== ENCOUNTER → 2021-04-08 | Outpatient (CLI) | payer OTHER | LOC: HYPER 09:25 | PROVIDERS: ATTEND Emergency Medicine | DX: E11.622 Type 2 diabetes mellitus with other skin ulcer (principal); L97.822 Non-pressure chronic ulcer of other part of left lower leg with fat layer exposed; L84 Corns and callosities; R60.0 Localized edema; I87.2 Venous insufficiency (chronic) (peripheral); I25.10 Atherosclerotic heart disease of native coronary artery without angina pectoris; E11.22 Type 2 diabetes mellitus with diabetic chronic kidney disease; I13.0 Hypertensive heart and chronic kidney disease with heart failure and stage 1 through stage 4 chronic kidney disease, or unspecified chronic kidney disease; I50.22 Chronic systolic (congestive) heart failure; N18.30 Chronic kidney disease, stage 3 unspecified; I65.23 Occlusion and stenosis of bilateral carotid arteries; I25.5 Ischemic cardiomyopathy; E66.01 Morbid (severe) obesity due to excess calories; G47.33 Obstructive sleep apnea (adult) (pediatric); E78.00 Pure hypercholesterolemia, unspecified; Z95.810 Presence of automatic (implantable) cardiac defibrillator; Z68.41 Body mass index [BMI] 40.0-44.9, adult; Z86.711 Personal history of pulmonary embolism; Z79.01 Long term (current) use of anticoagulants ==